=== PATIENT | female | born 1935 | race Caucasian/White ===

== ENCOUNTER 2016-11-06 06:42 | Inpatient (IN) | payer MEDICARE, OTHER ==
--- NOTE | 2016-08-08 12:54 | NUR ---
Teaching materials Scheduled for Lt TKA on 11-06-[address] Li. Handouts of medications to stop before surgery, letter from Dr Li, shower instructions, ortho consent, Surgical Services pamphlet, and my contact information. patient is scheduled to attend Joint Class, was instructed to obtain medical clearance 3-4 wks preop, and was set up with another apt with Dr Li and myself. Encouraged to call if she has any questions.
--- NOTE | 2016-10-09 14:00 | NUR ---
JOINT REPLACEMENT PREOP CLASS PATIENT ATTENDED JOINT REPLACEMENT PREOP CLASS. CASE MANAGEMENT CONTACT INFORMATION PROVIDED. EDUCATION WAS PROVIDED REGARDING WHAT TO EXPECT BEFORE, DURING AND AFTER SURGERY. INCLUDING: OVERVIEW OF ANATOMY AND PHYSIOLOGY HOSPITAL TREATMENT SCHEDULE THERAPY DEMONSTRATION CASE MANAGEMENT RESPONSIBILITIES DISCHARGE PLANNING EQUIPMENT NEEDS JOINT REPLACEMENT WORKBOOK ANTI-COAGULATION SURGERY STRONG NUTRITIONAL PROTOCOL DISCHARGE INSTRUCTIONS [facility] PATIENT PORTAL, WITH INSTRUCTIONS CJR AND PREOP SURVERY PREOP BATHING- CHG GIVEN ALL PATIENT'S QUESTIONS ANSWERED TO THEIR SATISFACTION. PATIENTS AND COACHES ENCOURAGED TO CALL WITH ANY ADDITIONAL QUESTIONS OR CONCERNS. CM FOLLOWING FOR TRANSITIONAL CARE PLANNING NEEDS DURING HOSPITALIZATION.
--- NOTE | 2016-10-15 09:25 | NUR ---
Face to face interaction with patient and her . PMH, allergies, meds reviewed and documented. Reviewed preop and DOS instructions as well as medications to stop before surgery. She would like to move her surgery up if there are any cancellations so she will stop her ASA and Glucosamine on 10-16-16.
--- NOTE | 2016-10-15 14:02 | NUR ---
Implantable Device Medtronic Sofy Parekh Pacemaker Serial # [id number] # [id number] Implanted on 10-14-15 Dr Emerson Parrish MD [phone] [id number]
--- NOTE | 2016-11-05 15:11 | NUR ---
HgbA1C Dr Li notified of A1C of 7.6. Ok to proceed with surgery.
[2016-11-06] VITALS (31 sets, daily range): BP systolic 100–160; BP diastolic 50–73; PULSE 69–94; RESP 12–18; TEMP 96.8–98; O2SAT 87–99; Ht 161.3 cm; Wt 88.0 kg
[~2016-11-06] VITALS: Ht 161.3 cm; Wt 88.0 kg
[~2016-11-06 06:42] MED LIST: ACET-2723 PO; AMLO5TAB2 PO; ASPI-914 PO; ATEN25TA PO; CALC-39 PO; CLINDAMYCIN 900mg IVPB 50 ML IV ONE; CYAN500T2 PO; FAMOTIDINE 20mg IVPB 50 ML IV ONE; FURO20TA4 PO; GABA-338 PO; GLUC1CAP10 PO; LIDOCAINE 1% (10mg/ml) 2ml SDV ID ONE; LISI-621 PO; LOVA10TA2 PO; MESA800T PO; METOCLOPRAMIDE 10mg/2ml INJECTION IV ONE; POTA10TA14 PO; PYRI100T2 PO; TRAM50TA4 PO
--- OUTSIDE RECORDS SUMMARY | 2016-11-06 06:45 | XMS REPORT ---
Author Author [facility]. Organization [facility] Address [address] [place] [address] Phone [phone] Summary purpose CCDA Sent to [facility] Chief Complaint and Reason for Visit No authorized Reason for Visit (Admitting Diagnosis) is available for this visit. Problem list No authorized problems tracked for continuity of care are available for this visit. Encounters No authorized problems tracked for encounter diagnoses are available for this visit. Medications No medications recorded for this patient visit Allergies, adverse reactions, alerts Allergen Category Ingredient Status Reaction Severity Onset Penicillins Drug Penicillins Active niacin Drug niacin Active Immunizations No immunizations recorded for this patient visit Relevant diagnostic tests and/or laboratory data No authorized results are available for this patient visit History of procedures Procedure Code Code Type Description Date Performed Performing Physician 59157 CPT-4 INJECT SPINE L/S (CD) 11-22-2015 JESSICA LLOYD J1040 CPT-4 METHLPREDNISOLONE ACETATE 11-22-2015 JESSICA LLOYD J1030 CPT-4 DEPO MEDROL 40MG 11-22-2015 JESSICA LLOYD Functional status No functional or cognitive status observations are available for this visit. Vital signs Type Value Date Respirations 16 71-30-004209:17 Pulse 70 81-22-567411:17 O2 Saturation 97% 34-86-838349:17 Systolic Blood Press 124mm/HG 55-88-632959:17 Diastolic Blood Pres 82mm/HG 87-95-032718:17 Social history No Social History or smoking status observations were recorded for this visit. ( Unknown if ever smoked.) Treatment Plan No treatment plan text is available for this visit. Hospital discharge instructions No discharge instruction text is available for this visit.
--- OUTSIDE RECORDS SUMMARY | 2016-11-06 06:45 | XMS REPORT ---
Author Author [facility]. Organization [facility] Address [address] [place] [address] Phone [phone] Summary purpose CCDA Sent to [facility] Chief Complaint and Reason for Visit Admit Diagnosis 1 SHORTNESS OF BREATH Problem list No authorized problems tracked for continuity of care are available for this visit. Encounters No authorized problems tracked for encounter diagnoses are available for this visit. Medications No home medications recorded for this patient visit Allergies, adverse reactions, alerts No allergy information is available for this patient. Immunizations No immunizations recorded for this patient visit Relevant diagnostic tests and/or laboratory data RESULTS CBC [id number]:15:00 Result Normal Range Units WBC 7.20 4.8-10.8 x103/mm3 Neutrophil % 52.9 50-70 % Lymph % 33.5 20-50 % [place] % 7.9 1.0-9.0 % Eosinophil % H 4.9 0-4 % Basophil % 0.8 0-2 % Neutrophil # 3.81 3.0-7.0 x103/mm3 Lymph # 2.41 1.0-4.0 x103/mm3 [place] # 0.57 0.0-0.8 x103/mm3 Eosinophil # 0.35 0-0.5 x103/mm3 Basophil # 0.06 0-0.2 x103/mm3 RBC 4.63 4.20-5.40 x103/mm3 HGB 12.7 12.0-16.0 g/dl HCT 38.5 37.0-47.0 % MCV 83.2 81-99 FL MCH 27.4 27.0-31.0 pg MCHC 33.0 32.0-36.0 g/dl RDW 15.0 12-15 % Platelet L 135 150-400 x103/mm3 MPV H 12.4 6.0-10.0 FL Chemistry Group [id number] Result Normal Range Units Sodium 140 134-145 mmol/L Potassium 3.8 3.6-5.0 mmol/L Chloride 101 98-107 mmol/L CO2 26 22-30 mmol/L Glucose H 201 75-110 mg/dl BUN H 25 9-20 mg/dl Creatinine .9 0.8-1.7 mg/dl Calcium 8.9 8.4-10.2 mg/dl Special Chemistry Group [id number]:00 Result Normal Range Units Troponin I < 0.06 ng/ml NEGATIVE - 0.06-0.30 ng/ml INCONCLUSIVE - 0.31-0.64 ng/ml; Suggest Repeating in 2-4 hours POSITIVE - >0.64 ng/ml; Probable AMI TSH 1.62 0.50-6.00 uIU/mL History of procedures Procedure Code Code Type Description Date Performed Performing Physician 65931 CPT-4 METABOLIC PANEL TOTAL CA 05-21-2014 JESSICA LLOYD 40435 CPT-4 ASSAY OF TROPONIN, QUANT 05-21-2014 JESSICA LLOYD 56244 CPT-4 ASSAY THYROID STIM HORMONE 05-21-2014 JESSICA LLOYD 14591 CPT-4 COMPLETE CBC, AUTOMATED 05-21-2014 JESSICA LLOYD Functional status No functional or cognitive status observations are available for this visit. Vital signs No authorized vital signs are available for this visit. Social history No Social History or smoking status observations were recorded for this visit. ( Unknown if ever smoked.) Treatment Plan No treatment plan text is available for this visit. Hospital discharge instructions No discharge instruction text is available for this visit.
--- OUTSIDE RECORDS SUMMARY | 2016-11-06 06:45 | XMS REPORT ---
Author Author [facility]. Organization [facility] Address [address] [place] [address] Phone [phone] Summary purpose CCDA Sent to [facility] Chief Complaint and Reason for [...] Relevant diagnostic tests and/or laboratory data RESULTS Chemistry Group [id number] Result Normal Range Units AST 21 14-36 U/L ALT 26 11-66 U/L History of procedures Procedure Code Code Type Description Date Performed Performing Physician 75411 CPT-4 ALANINE AMINO (ALT) (SGPT) 12-23-2015 JESSICA LLOYD 14558 CPT-4 TRANSFERASE (AST) (SGOT) 12-23-2015 JESSICA LLOYD Functional status No functional or [...]
--- OUTSIDE RECORDS SUMMARY | 2016-11-06 06:45 | XMS REPORT ---
Author Author [facility]. Organization [facility] Address [address] [place] [address] Phone [phone] Summary purpose CCDA Sent to [facility] Chief Complaint and Reason for [...] diagnostic tests and/or laboratory data RESULTS CBC :25:00 Result Normal Range Units WBC 7.97 4.8-10.8 x103/mm3 Neutrophil % L 43.5 50-70 % Lymph % 40.8 20-50 % [place] % H 9.8 1.0-9.0 % Eosinophil % H 5.1 0-4 % Basophil % 0.8 0-2 % Neutrophil # 3.47 3.0-7.0 x103/mm3 Lymph # 3.25 1.0-4.0 x103/mm3 [place] # 0.78 0.0-0.8 x103/mm3 Eosinophil # 0.41 0-0.5 x103/mm3 Basophil # 0.06 0-0.2 x103/mm3 RBC 4.27 4.20-5.40 x103/mm3 HGB 12.7 12.0-16.0 g/dl HCT 38.5 37.0-47.0 % MCV 90.2 81-99 FL MCH 29.7 27.0-31.0 pg MCHC 33.0 32.0-36.0 g/dl RDW 12.8 12-15 % Platelet 170 150-400 x103/mm3 MPV H 12.5 6.0-10.0 FL Chemistry Group [id number]:00 Result Normal Range Units Sodium 141 134-145 mmol/L Potassium 4.2 3.6-5.0 mmol/L Chloride 101 98-107 mmol/L CO2 H 33 22-30 mmol/L Glucose H 111 75-110 mg/dl BUN 19 9-20 mg/dl Creatinine L .76 0.8-1.7 mg/dl eGFR 73 ml/min. Calcium 9.4 8.4-10.2 mg/dl History of procedures Procedure Code Code Type Description Date Performed Performing Physician 37509 CPT-4 METABOLIC PANEL TOTAL CA 08-29-2016 JESSICA LLOYD 13044 CPT-4 COMPLETE CBC, AUTOMATED 08-29-2016 JESSICA LLOYD Functional status No functional or [...]
--- OUTSIDE RECORDS SUMMARY | 2016-11-06 06:45 | XMS REPORT ---
Author Author [facility]. Organization [facility] Address [address] [place] [address] Phone [phone] Summary purpose CCDA Sent to [facility] Chief Complaint and Reason for Visit No [...] for this patient visit History of procedures No procedures recorded for this patient visit. Functional status No functional or cognitive status [...]
--- OUTSIDE RECORDS SUMMARY | 2016-11-06 06:45 | XMS REPORT ---
Author Author [facility]. Organization [facility] Address [address] [place] [address] Phone [phone] Summary purpose CCDA Sent to [facility] Chief Complaint and Reason for Visit [...] tests and/or laboratory data RESULTS Chemistry Group [id number]:00 Result Normal Range Units AST H 44 14-36 U/L ALT 27 11-66 U/L History of procedures No procedures recorded for [...]
--- OUTSIDE RECORDS SUMMARY | 2016-11-06 06:45 | XMS REPORT ---
Author Author [facility]. Organization [facility] Address [address] [place] [address] Phone [phone] Summary purpose CCDA Sent to [facility] Chief Complaint and Reason for [...]
--- OUTSIDE RECORDS SUMMARY | 2016-11-06 06:45 | XMS REPORT ---
Author Author [facility]. Organization [facility] Address [address] [place] [address] Phone [phone] Summary purpose CCDA Sent to [facility] Chief Complaint and Reason [...] diagnostic tests and/or laboratory data RESULTS CBC [id number]:35:00 Result Normal Range Units WBC 8.89 4.8-10.8 x103/mm3 Neutrophil % L 47.0 50-70 % Lymph % 38.4 20-50 % [place] % H 10.3 1.0-9.0 % Eosinophil % 3.4 0-4 % Basophil % 0.9 0-2 % Neutrophil # 4.18 3.0-7.0 x103/mm3 Lymph # 3.41 1.0-4.0 x103/mm3 [place] # H 0.92 0.0-0.8 x103/mm3 Eosinophil # 0.30 0-0.5 x103/mm3 Basophil # 0.08 0-0.2 x103/mm3 RBC 4.60 4.20-5.40 x103/mm3 HGB 13.4 12.0-16.0 g/dl HCT 40.5 37.0-47.0 % MCV 88.0 81-99 FL MCH 29.1 27.0-31.0 pg MCHC 33.1 32.0-36.0 g/dl RDW 13.0 12-15 % Platelet 177 150-400 x103/mm3 MPV H 12.8 6.0-10.0 FL Chemistry Group [id number]:00 Result Normal Range Units Sodium 143 134-145 mmol/L Potassium 4.1 3.6-5.0 mmol/L Chloride 100 98-107 mmol/L CO2 29 22-30 mmol/L Glucose H 119 75-110 mg/dl BUN 19 9-20 mg/dl Creatinine L .73 0.8-1.7 mg/dl eGFR 77 ml/min. Total Protein 7.0 6.3-8.2 g/dl Albumin 4.2 3.5-5.0 g/dl Calcium 9.6 8.4-10.2 mg/dl Alk Phos 92 38-126 U/L AST 34 14-36 U/L ALT 34 11-66 U/L T Bili .6 0.2-1.3 mg/dl A/G Ratio 1.5 Ratio History of procedures No procedures recorded for [...]
--- OUTSIDE RECORDS SUMMARY | 2016-11-06 06:45 | XMS REPORT ---
Author Author [facility]. Organization [facility] Address [address] [place] [address] Phone [phone] Summary purpose CCDA Sent to [facility] Chief Complaint and Reason for Visit No [...] visit. Vital signs Type Value Date Respirations 18 24-16-002356:56 Pulse 69 :56 O2 Saturation 95% :56 Systolic Blood Press 204mm/HG :56 Diastolic Blood Pres 87mm/HG 30-83-075551:56 Social history No Social History or smoking status observations were recorded for this visit. ( Unknown if ever smoked.) Treatment Plan No treatment plan text is available for this visit. Hospital discharge instructions No discharge instruction text is available for this visit.
--- OUTSIDE RECORDS SUMMARY | 2016-11-06 06:45 | XMS REPORT ---
Author Author [facility]. Organization [facility] Address [address] [place] [address] Phone [phone] Summary purpose CCDA Sent to [facility] Chief Complaint and Reason for Visit No [...] Vital signs Type Value Date Respirations 16 85-71-630141:00 Pulse 70 :00 O2 Saturation 94% :00 Systolic Blood Press 118mm/HG 07-16-542463:05 Diastolic Blood Pres 62mm/HG 85-34-690609:05 Social history No Social History or smoking status observations were recorded for this visit. ( Unknown if ever smoked.) Treatment Plan No treatment plan text is available for this visit. Hospital discharge instructions No discharge instruction text is available for this visit.
--- OUTSIDE RECORDS SUMMARY | 2016-11-06 06:45 | XMS REPORT ---
Author Author [facility]. Organization [facility] Address [address] [place] [address] Phone [phone] Summary purpose CCDA Sent to [facility] Chief Complaint and Reason for Visit [...] diagnostic tests and/or laboratory data RESULTS CBC [id number]:15:00 Result Normal Range Units WBC 7.20 4.8-10.8 x103/mm3 Neutrophil % 52.9 50-70 % Lymph % 33.5 20-50 % [place] % 7.9 1.0-9.0 % Eosinophil % H 4.9 0-4 % Basophil % 0.8 0-2 % Neutrophil # 3.81 3.0-7.0 x103/mm3 Lymph # 2.41 1.0-4.0 x103/mm3 [place] # 0.57 0.0-0.8 x103/mm3 Eosinophil # 0.35 0-0.5 x103/mm3 Basophil # 0.06 0-0.2 x103/mm3 RBC 4.63 4.20-5.40 x103/mm3 HGB 12.7 12.0-16.0 g/dl HCT 38.5 37.0-47.0 % MCV 83.2 81-99 FL MCH 27.4 27.0-31.0 pg MCHC 33.0 32.0-36.0 g/dl RDW 15.0 12-15 % Platelet L 135 150-400 x103/mm3 MPV H 12.4 6.0-10.0 FL Chemistry Group [id number]:00 Result Normal Range Units Sodium 140 134-145 mmol/L Potassium 3.8 3.6-5.0 mmol/L Chloride 101 98-107 mmol/L CO2 26 22-30 mmol/L Glucose H 201 75-110 mg/dl BUN H 25 9-20 mg/dl Creatinine .9 0.8-1.7 mg/dl Calcium 8.9 8.4-10.2 mg/dl Special Chemistry Group [id number]:00 Result Normal Range Units Troponin I < 0.06 ng/ml NEGATIVE - 0.06-0.30 ng/ml INCONCLUSIVE - 0.31-0.64 ng/ml; Suggest Repeating in 2-4 hours POSITIVE - >0.64 ng/ml; Probable AMI TSH 1.62 0.50-6.00 uIU/mL History of procedures No procedures recorded for [...]
--- OUTSIDE RECORDS SUMMARY | 2016-11-06 06:46 | XMS REPORT ---
Author Author [facility]. Organization [facility] Address [address] [place] [address] Phone [phone] Summary purpose CCDA Sent to [facility] Chief Complaint and Reason for Visit [...] diagnostic tests and/or laboratory data RESULTS CBC :09:00 Result Normal Range Units WBC 7.77 4.8-10.8 x103/mm3 Neutrophil % L 49.5 50-70 % Lymph % 37.5 20-50 % [place] % 8.9 1.0-9.0 % Eosinophil % 3.7 0-4 % Basophil % 0.4 0-2 % Neutrophil # 3.85 3.0-7.0 x103/mm3 Lymph # 2.91 1.0-4.0 x103/mm3 [place]le[place] # 0.69 0.0-0.8 x103/mm3 Eosinophil # 0.29 0-0.5 x103/mm3 Basophil # 0.03 0-0.2 x103/mm3 RBC 4.35 4.20-5.40 x103/mm3 HGB 13.1 12.0-16.0 g/dl HCT 38.4 37.0-47.0 % MCV 88.3 81-99 FL MCH 30.1 27.0-31.0 pg MCHC 34.1 32.0-36.0 g/dl RDW 13.4 12-15 % Platelet 196 150-400 x103/mm3 MPV H 12.4 6.0-10.0 FL Chemistry Group [id number] Result Normal Range Units Sodium 145 134-145 mmol/L Potassium 4.0 3.6-5.0 mmol/L Chloride 105 98-107 mmol/L CO2 28 22-30 mmol/L Glucose H 122 75-110 mg/dl BUN 15 9-20 mg/dl Creatinine L .70 0.8-1.7 mg/dl Total Protein 6.7 6.3-8.2 g/dl Albumin 3.8 3.5-5.0 g/dl Calcium 9.3 8.4-10.2 mg/dl Alk Phos 83 38-126 U/L AST 24 14-36 U/L ALT 32 11-66 U/L T Bili .7 0.2-1.3 mg/dl A/G Ratio 1.3 Ratio Special Chemistry Group [id number] Result Normal Range Units TSH 1.56 0.50-6.00 uIU/mL History of procedures No procedures [...]
--- OUTSIDE RECORDS SUMMARY | 2016-11-06 06:46 | XMS REPORT ---
Author Author [facility]. Organization [facility] Address [address] [place] [address] Phone [phone] Summary purpose CCDA Sent to [facility] Chief Complaint and Reason for Visit [...] diagnostic tests and/or laboratory data RESULTS CBC [id number]:38:00 WBC 8.14 Neutrophil % 60.4 Lymph % 28.6 [place] % 7.5 Eosinophil % 2.9 Basophil % 0.6 Neutrophil # 4.91 Lymph # 2.33 [place] # 0.61 Eosinophil # 0.24 Basophil # 0.05 RBC 4.65 HGB 13.8 HCT 41.2 MCV 88.6 MCH 29.7 MCHC 33.5 RDW 13.9 Platelet 153 MPV H 13.2 Chemistry Group [id number] Sodium 139 Potassium 4.2 Chloride 101 CO2 27 Glucose H 196 BUN 17 Creatinine .8 Calcium 9.5 History of procedures Procedure Code Code Type Description Date Performed Performing Physician 23495 CPT-4 METABOLIC PANEL TOTAL CA 05-16-2015 JESSICA LLOYD 69093 CPT-4 COMPLETE CBC AUTOMATED 05-16-2015 JESSICA LLOYD Functional status No functional or [...]
--- OUTSIDE RECORDS SUMMARY | 2016-11-06 06:46 | XMS REPORT ---
Author Author [facility]. Organization [facility] Address [address] [place] [address] Phone [phone] Summary purpose CCDA Sent to [facility] Chief Complaint and Reason for Visit [...] tests and/or laboratory data RESULTS Chemistry Group [id number]:00 Result Normal Range Units Sodium 140 134-145 mmol/L Potassium 4.2 3.6-5.0 mmol/L Chloride 102 98-107 mmol/L CO2 27 22-30 mmol/L Glucose H 121 75-110 mg/dl BUN 19 9-20 mg/dl Creatinine L .6 0.8-1.7 mg/dl Calcium 9.4 8.4-10.2 mg/dl History of procedures Procedure Code Code Type Description Date Performed Performing Physician 37140 CPT-4 METABOLIC PANEL TOTAL CA 08-22-2015 JESSICA LLOYD Functional status No functional or [...]
--- OUTSIDE RECORDS SUMMARY | 2016-11-06 06:46 | XMS REPORT | Continuity of Care Document ---
Author Author [facility] Organization [facility] Address Unknown Phone Unavailable Support Name Relationship Address Phone MARIEL BOLAND MD Caregiver [address] [place], [place] [id number] JESSICA LLOYD MD Caregiver [facility] [address] [place] [address] NAYANA POWERS Next Of Kin [address] [place] [address] Insurance Providers Payer Name Policy Number Subscriber Name Relationship Medicare [id number] Naveen Powers 18 Self Other A Insurance [id number] Naveen Powers 18 Self Advance Directives Directive Response Recorded Date/Time Ordered Resuscitation Status Full Code 08/13/14 10:40am Resuscitation Documents on File No 08/13/14 9:43am Chief Complaint and Reason for Visit Chief Complaint RT TKA Reason for Visit Degenerative arthritis of right knee DMII (diabetes mellitus, type 2) GERD (gastroesophageal reflux disease) Hypertension Obesity (BMI 30-39.9) Restless leg syndrome Osteopenia Coronary artery disease Osteoarthritis CAD (coronary artery disease) Status post total right knee replacement Cardiomegaly Bradycardia following surgery Problems Medical Problems Problem Onset Date Status Degenerative arthritis of right knee Unknown Active DMII (diabetes mellitus, type 2) Unknown Active GERD (gastroesophageal reflux disease) Unknown Active Hypertension Unknown Active Obesity (BMI 30-39.9) Unknown Active Restless leg syndrome Unknown Active Osteopenia Unknown Active Coronary artery disease Unknown Active Osteoarthritis Unknown Active CAD (coronary artery disease) Unknown Active Status post total right knee replacement Unknown Active Cardiomegaly Unknown Active Bradycardia following surgery Unknown Active Medications Medication Dose Route Sig Days/Qty Instructions Order Date Discontinued Date Status Pyridoxine HCl 100 Mg PO DAILY 07/28/14 Active Sulindac 150 Mg PO DAILY 07/28/14 Active Simvastatin 20 Mg PO BEDTIME Take 1 tablet, by mouth, 1 time a day (at BEDTIME). 07/28/14 Active Potassium Chloride 10 Meq PO TWICE DAILY WITH MEALS 07/28/14 Active Metformin HCl 500 Mg PO DAILY 07/28/14 Active Lisinopril 1 Tab PO DAILY 07/28/14 Active Gluc Ferreira/Chondro Ferreira A/Vit C/Mn 1 Cap PO DAILY 07/28/14 Active Gabapentin 300 Mg PO BEDTIME 07/28/14 Active Furosemide 1 Tab PO DAILY 07/28/14 Active Atenolol 1 Tab PO DAILY 07/28/14 Active Aspirin 1 Tab PO DAILY 07/28/14 08/17/14 Discontinued Mesalamine 800 Mg PO TWICE A DAY 07/28/14 Active Calcium Carbonate/Vitamin D3 1 Tab PO TWICE A DAY 08/16/14 Active Acetaminophen 2 Tab PO TWICE A DAY 08/16/14 Active Ascorbic Acid 2 Tab PO TWICE A DAY 08/16/14 Active Aspirin 325 Mg PO TWICE A DAY 90 Qty 08/17/14 Active Multivits,Th W-Fe,Other Min 1 Tab PO DAILY 30 Days 08/17/14 Active Tramadol HCl 50-100 Mg PO Q4H PRN PAIN 50 Qty 08/17/14 Active Social History Social History Problem Response Recorded Date/Time Chewing Tobacco Status No 07/28/2014 11:14am Hx Substance Use No 07/28/2014 11:14am Hx Alcohol Use Y 1-2 XYR 07/28/2014 11:14am Has the pt used tobacco in the last 12 months No 07/28/2014 11:14am Tobacco Usage none 08/16/2014 1:35pm Query Response Start Date Stop Date Smoking Status Never smoker Hospital Discharge Instructions Instructions: Care Instructions: Reason for Hospitalization: RIGHT KNEE REPLACEMENT I was in the hospital because (patient own words): knee surgery Discharge Diet: ADA diet. Discharge Activity: ACTIVITY TOLERATED Follow Up Appointments: Omar Barnhart PA-C ON 09-01-14 AT 1030 AM Condition at time of discharge: Good Notify Physician If: 1. Call your surgeon if you are having problems relating to your hospitaliztion at [phone]. 2. Problems such as: Temp above 101.5 degrees 3.. If the office is closed, call [facility] at [phone] and have your Surgeon paged. Condition at time of discharge: Fair have your Surgeon paged. Condition at time of discharge: Fair Pass Plan of Care Discharge Date 08/17/14 2:10pm Disposition 01 DISCHARGED HOME, SELF-CARE Instructions/Education Provided [facility] Postop Instructions Prescriptions See Medications Section Functional Status Query Response Date Recorded Physical Hygiene Self August 17, 2014 1:33pm Disabilities Visual August 17, 2014 1:33pm Devices Used Glasses Walker August 17, 2014 1:33pm Dressing Self August 17, 2014 1:33pm Ambulation Self August 17, 2014 1:33pm Diet Self August 17, 2014 1:33pm Mental Status Alert Oriented August 17, 2014 1:33pm Disabilities Visual August 17, 2014 1:33pm Devices Used Glasses Walker August 17, 2014 1:33pm Physical Hygiene Self August 17, 2014 1:33pm Dressing Self August 17, 2014 1:33pm Ambulation Self August 17, 2014 1:33pm Diet Self August 17, 2014 1:33pm Allergies, Adverse Reactions, Alerts Allergen Type Severity Reaction Status Last Updated Penicillin Allergy Unknown HIVES Active 07/28/14 Niacin Allergy Unknown BLISTERS, ITCHING Active 07/28/14 Hydrocodone Adverse Reaction Unknown NAUSEA Active 08/13/14 Acetaminophen Adverse Reaction Unknown NAUSEA Active 08/13/14 Chlorpheniramine Adverse Reaction Unknown HTN PER H&P Active 08/09/14 Phenylpropanolamine Adverse Reaction Unknown HTN PER H&P Active 08/09/14 Immunizations Name Given Type Hx Influenza Vaccination Y May 2014 Historical Hx Pneumococcal Vaccination Y Unknown date Historical Hx Tetanus, Diptheria, Pertussis No Historical Hx Influenza Vaccination Y May 2014 Historical Hx Tetanus Diptheria No Historical Hx Tetanus, Diptheria, Pertussis No Historical Hx Tetanus Toxoid Vaccination Y unknown date Historical Vital Signs Acute Vital Signs Vital Response Date/Time Temperature (Fahrenheit) 99.9 deg F (96.8 - 99.1) Temperature (Calculated Celsius) 37.89291 degrees C (36.0 - 37.3) Temperature Source Temporal Pulse Rate (adult) 74 bpm (60 - 100) Respiratory Rate 20 breaths/min (10 - 20) O2 Sat by Pulse Oximetry 97 % (90 - 100) Oxygen Delivery Method Room Air Blood Pressure 141/68 mm Hg Blood Pressure Source Automatic Cuff Height (Feet) 5 feet Height (Inches) 5.00 inches Height 5 ft 5 in Weight 187 lb Body Mass Index 31.0 kg/m^2 Results Test Source Date Result Interp. Ref. Range Comments Anion Gap August 17, 2014 4:35am 8 MEQ/L N 5-15 BUN/Creatinine Ratio August 17, 2014 4:35am 18 RATIO N 6-26 Basophils # (Auto) August 17, 2014 4:35am 0.1 T/MM3 N 0-0.2 Basophils (%) (Auto) August 17, 2014 4:35am 0.4 % N 0-2 Blood Urea Nitrogen August 17, 2014 4:35am 14.0 MG/DL N 7-17 Calcium Level August 17, 2014 4:35am 8.6 MG/DL DN 8.4-10.2 Calculated Osmolality August 17, 2014 4:35am 262 MOSM/KG N 261-280 Carbon Dioxide Level August 17, 2014 4:35am 25 MEQ/L N 22-30 Chemistry Specimen Hemolysis August 17, 2014 4:35am < 15 0-25 0-25: No Hemolysis.26-70: Slight Hemolysis - can falsely elevate K and Urine Protein. 71-285: Moderate Hemolysis - can falsely elevate K, Troponin I, CA 19-9, PTH, CSF GLucose, and Urine Protein, and can falsely decrease Phenytoin. 286-999: Gross Hemolysis - can falsely elevate K, Troponin I, CA 19-9, PTH, CSF Glucose, and Urine Protine, and can falsely decrease Phenytoin. Recommend specimen recollection. Chloride Level August 17, 2014 4:35am 102 MEQ/L N 98-107 Creatinine August 17, 2014 4:35am 0.8 MG/DL DN 0.7-1.2 Eosinophils # (Auto) August 17, 2014 4:35am 0.2 T/MM3 N 0-0.5 Eosinophils (%) (Auto) August 17, 2014 4:35am 1.7 % N 0-4 Glomerular Filtration Rate Calc August 17, 2014 4:35am 70 - Glucometer August 17, 2014 10:21am 194 mg/dL H 65-110 Glucose Level August 17, 2014 4:35am 112 MG/DL H 65-110 Hematocrit August 17, 2014 4:35am 33.8 % L 36-46 Hemoglobin August 17, 2014 4:35am 10.9 GM/DL L 12-16 Hemoglobin A1c August 17, 2014 4:35am 7.0 % N 6-7 <6.0 NON-DIABETIC RANGE6.0-7.0 ADA THERAPEUTIC RANGE >7.0 ACTION SUGGESTED Icterus Index August 17, 2014 4:35am < 2 0-7 Immature Granulocyte # (Auto) August 17, 2014 4:35am 0.03 T/MM3 N 0.00- 0.03 Immature Granulocyte % (Auto) August 17, 2014 4:35am 0.3 % N 0.0-0.5 Lymphocytes # (Auto) August 17, 2014 4:35am 2.1 T/MM3 N 1-4.8 Lymphocytes (%) (Auto) August 17, 2014 4:35am 18.9 % L 23-45 Mean Corpuscular Hemoglobin August 17, 2014 4:35am 27.8 UUG N 26-34 Mean Corpuscular Hemoglobin Concent August 17, 2014 4:35am 32.2 GM/DL N 31-37 Mean Corpuscular Volume August 17, 2014 4:35am 86.2 UM3 N 80-100 Mean Platelet Volume August 17, 2014 4:35am 12.7 UM3 H 9.4-12.4 Monocytes # (Auto) August 17, 2014 4:35am 0.9 T/MM3 H 0-0.8 Monocytes (%) (Auto) August 17, 2014 4:35am 8.1 % N 0-9.0 Neutrophils # (Auto) August 17, 2014 4:35am 8.0 T/MM3 H 1.8-7.7 Neutrophils (%) (Auto) August 17, 2014 4:35am 70.6 % H 33-66 Platelet Count August 17, 2014 4:35am 147 T/MM3 N 130-400 Potassium Level August 17, 2014 4:35am 4.1 MEQ/L N 3.6-5 Prealbumin August 17, 2014 4:35am 25.7 MG/DL N 17.6-36.0 RDW Standard Deviation August 17, 2014 4:35am 46.9 FL N 36.9-50.2 Red Blood Count August 17, 2014 4:35am 3.92 M/MM3 L 4.00-5.20 Sodium Level August 17, 2014 4:35am 135 MEQ/L N 134-144 Thyroid Stimulating Hormone (TSH) August 17, 2014 4:35am 1.43 MIU/L N 0.47-4.68 Turbidity August 17, 2014 4:35am < 20 0-20 Vitamin B12 Level August 17, 2014 4:35am 467 PG/ML N 239-931 White Blood Count August 17, 2014 4:35am 11.3 T/MM3 H 4.5-11.0 Name: NAVEEN POWERS Unit #: [id number] : 1935 Sex: F Loc / Svc: MED DOS: Signed Report #: [id number] DIAGNOSTIC IMAGING REPORT TYPE OF EXAM: KNEE RIGHT 2 VIEW Dictated By: SUSIE MALHOTRA MD Indication: ITS.REASON: postop right total knee Comparison: None Findings: Postoperative changes of right total knee replacement are seen. There is expected postoperative subcutaneous gas. No evidence of hardware failure or acute fracture. No retained radiopaque surgical instruments or sponges. Impression: New right total knee prosthesis without evidence of immediate complication. . Procedures Procedure Status Date Provider(s) MRI JNT OF LWR EXTRE W/O DYE completed 06/21/14 Total knee arthroplasty completed 08/16/14 MARIEL BOLAND MD Encounters Encounter Location Date/Time Discharged Inpatient [facility] 08/16/14 5:28am Registered Clinic [facility] 08/15/14 3:41pm Registered Clinic [facility] 06/21/14 12:35pm Recent Diagnosis Degenerative arthritis of right knee DMII (diabetes mellitus, type 2) GERD (gastroesophageal reflux disease) Hypertension Obesity (BMI 30-39.9) Restless leg syndrome Osteopenia Coronary artery disease Osteoarthritis CAD (coronary artery disease) Status post total right knee replacement Cardiomegaly Bradycardia following surgery
--- OUTSIDE RECORDS SUMMARY | 2016-11-06 06:47 | XMS REPORT ---
Author Author [facility]. Organization [facility] Address [address] [place] [address] Phone [phone] Summary purpose CCDA Sent to [facility] Chief Complaint and Reason for Visit Admit Diagnosis 1 RESPIRATORY ABNORM NEC Problem list No authorized problems tracked for [...] Code Type Description Date Performed Performing Physician 34932 CPT-4 CARDIOVASCULAR STRESS TEST 05-26-2014 JESSICA LLOYD Functional status No functional or cognitive status observations are available for this visit. Vital signs Type Value Date Respirations 18 99-64-050292:56 Pulse 69 :56 O2 Saturation 95% :56 Systolic Blood Press 204mm/HG :56 Diastolic Blood Pres 87mm/HG 60-73-395406:56 Social history No Social History or smoking status observations were recorded for this visit. ( Unknown if ever smoked.) Treatment Plan No treatment plan text is available for this visit. Hospital discharge instructions No discharge instruction text is available for this visit.
--- OUTSIDE RECORDS SUMMARY | 2016-11-06 06:47 | XMS REPORT ---
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 Problem Pre-syncope R55 Active Problem Abnormal Holter exam R94.31 Active Problem Pacemaker Z95.0 Active Problem Bradycardia R00.1 Active Problem Dyspnea on exertion R06.09 Active Problem Dyslipidemia E78.5 Active Problem 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
--- OUTSIDE RECORDS SUMMARY | 2016-11-06 06:47 | XMS REPORT ---
Author Author [facility]. Organization [facility] Address [address] [place] [address] Phone [phone] Summary purpose CCDA Sent to [facility] Chief Complaint and Reason for [...] tests and/or laboratory data RESULTS Chemistry Group [id number]:00 Result Normal Range Units Sodium 138 134-145 mmol/L Potassium 4.4 3.6-5.0 mmol/L Chloride 100 98-107 mmol/L CO2 30 22-30 mmol/L Glucose H 258 75-110 mg/dl BUN H 32 9-20 mg/dl Creatinine .83 0.8-1.7 mg/dl eGFR 66 ml/min. Calcium 9.2 8.4-10.2 mg/dl AST 23 14-36 U/L ALT 33 11-66 U/L History of procedures Procedure Code Code Type Description Date Performed Performing Physician 04943 CPT-4 METABOLIC PANEL TOTAL CA 05-22-2016 JESSICA LLOYD 38800 CPT-4 ALANINE AMINO (ALT) (SGPT) 05-22-2016 JESSICA LLOYD 97182 CPT-4 TRANSFERASE (AST) (SGOT) 05-22-2016 JESSICA LLOYD Functional status No functional or [...]
--- OUTSIDE RECORDS SUMMARY | 2016-11-06 06:47 | XMS REPORT ---
Author Author [facility]. Organization [facility] Address [address] [place] [address] Phone [phone] Summary purpose CCDA Sent to [facility] Chief Complaint and Reason for Visit No [...] diagnostic tests and/or laboratory data RESULTS CBC :15:00 Result Normal Range Units WBC 9.38 4.8-10.8 x103/mm3 Neutrophil % 61.0 50-70 % Lymph % 25.4 20-50 % [place] % H 10.2 1.0-9.0 % Eosinophil % 3.0 0-4 % Basophil % 0.4 0-2 % Neutrophil # 5.72 3.0-7.0 x103/mm3 Lymph # 2.38 1.0-4.0 x103/mm3 [place] # H 0.96 0.0-0.8 x103/mm3 Eosinophil # 0.28 0-0.5 x103/mm3 Basophil # 0.04 0-0.2 x103/mm3 RBC 4.61 4.20-5.40 x103/mm3 HGB 13.0 12.0-16.0 g/dl HCT 39.6 37.0-47.0 % MCV 85.9 81-99 FL MCH 28.2 27.0-31.0 pg MCHC 32.8 32.0-36.0 g/dl RDW H 15.3 12-15 % Platelet 159 150-400 x103/mm3 MPV H 12.8 6.0-10.0 FL Chemistry Group :15:00 Result Normal Range Units Sodium 140 134-145 mmol/L Potassium 3.8 3.6-5.0 mmol/L Chloride 98 98-107 mmol/L CO2 28 22-30 mmol/L Glucose H 162 75-110 mg/dl BUN H 33 9-20 mg/dl Creatinine 1.1 0.8-1.7 mg/dl Total Protein 6.8 6.3-8.2 g/dl Albumin 4.1 3.5-5.0 g/dl Calcium 9.4 8.4-10.2 mg/dl Alk Phos 80 38-126 U/L AST 28 14-36 U/L ALT 30 11-66 U/L T Bili .6 0.2-1.3 mg/dl A/G Ratio 1.5 Ratio Coagulation Group :15:00 Result Normal Range Units Protime 11.0 9.8-12.4 Sec INR 1.0 APTT 23.2 21.9-31.9 Sec Hematology Group :15:00 Result Normal Range Units Sed Rate (ESR) 11 0-20 MM/hr. Reference Lab Group :50:00 Result Normal Range Units MRSA Source Nares History of procedures No procedures recorded for [...]
--- OUTSIDE RECORDS SUMMARY | 2016-11-06 06:47 | XMS REPORT ---
Author Author [facility]. Organization [facility] Address [address] [place] [address] Phone [phone] Summary purpose CCDA Sent to [facility] Chief Complaint and Reason for Visit Admit Diagnosis 1 DM2/NOS UNCOMP NSU Problem list No authorized problems tracked for [...] diagnostic tests and/or laboratory data RESULTS CBC 37-50-123172:47:00 Result Normal Range Units WBC 10.26 4.8-10.8 x103/mm3 Neutrophil % 50.8 50-70 % Lymph % 35.9 20-50 % [place] % H 9.3 1.0-9.0 % Eosinophil % 3.3 0-4 % Basophil % 0.7 0-2 % Neutrophil # 5.22 3.0-7.0 x103/mm3 Lymph # 3.68 1.0-4.0 x103/mm3 [place] # H 0.95 0.0-0.8 x103/mm3 Eosinophil # 0.34 0-0.5 x103/mm3 Basophil # 0.07 0-0.2 x103/mm3 RBC 4.53 4.20-5.40 x103/mm3 HGB 13.2 12.0-16.0 g/dl HCT 39.5 37.0-47.0 % MCV 87.2 81-99 FL MCH 29.1 27.0-31.0 pg MCHC 33.4 32.0-36.0 g/dl RDW 13.5 12-15 % Platelet 186 150-400 x103/mm3 MPV H 12.4 6.0-10.0 FL Chemistry Group [id number]:47:00 Result Normal Range Units Sodium 134 134-145 mmol/L Potassium 3.9 3.6-5.0 mmol/L Chloride 101 98-107 mmol/L CO2 27 22-30 mmol/L Glucose 106 75-110 mg/dl BUN 13 9-20 mg/dl Creatinine L .6 0.8-1.7 mg/dl Total Protein 6.4 6.3-8.2 g/dl Albumin 3.8 3.5-5.0 g/dl Calcium 9.3 8.4-10.2 mg/dl Alk Phos 95 38-126 U/L AST 18 14-36 U/L ALT 29 11-66 U/L T Bili .5 0.2-1.3 mg/dl A/G Ratio 1.4 Ratio Special Chemistry Group [id number]:00 Result Normal Range Units TSH 2.56 0.50-6.00 uIU/mL History of procedures Procedure Code Code Type Description Date Performed Performing Physician 15934 CPT-4 COMPREHEN METABOLIC PANEL 10-25-2014 JESSICA LLOYD 47114 CPT-4 ASSAY THYROID STIM HORMONE 10-25-2014 JESSICA LLOYD 10380 CPT-4 COMPLETE CBC AUTOMATED 10-25-2014 JESSICA LLOYD Functional status No functional or [...]
--- OUTSIDE RECORDS SUMMARY | 2016-11-06 06:47 | XMS REPORT ---
Author Author [facility]. Organization [facility] Address [address] [place] [address] Phone [phone] Summary purpose CCDA Sent to [facility] Chief Complaint and Reason for Visit Admit Diagnosis 1 HYPERTENSION NOS Problem list No authorized problems tracked for [...] tests and/or laboratory data RESULTS Chemistry Group [id number]:30:00 Result Normal Range Units Sodium 139 134-145 mmol/L Potassium 3.9 3.6-5.0 mmol/L Chloride 103 98-107 mmol/L CO2 26 22-30 mmol/L Glucose H 214 75-110 mg/dl BUN 17 9-20 mg/dl Creatinine .9 0.8-1.7 mg/dl Calcium 8.8 8.4-10.2 mg/dl History of procedures Procedure Code Code Type Description Date Performed Performing Physician 66545 CPT-4 METABOLIC PANEL TOTAL CA 05-04-2014 JESSICA LLOYD Functional status No functional or [...]
--- OUTSIDE RECORDS SUMMARY | 2016-11-06 06:47 | XMS REPORT ---
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 00061086 Problem Dyspnea on exertion R06.09 Active 77888279 Problem Fatigue R53.83 Active 25206749 Problem Pacemaker Z95.0 Active 761167677 Problem Pre-syncope R55 Active 776071801 Problem 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 Active 951701133 Problem Bradycardia R00.1 Active 41854849 Problem Abnormal Holter exam R94.31 Active 763788927 Problem Dyslipidemia E78.5 Active 534824233 Problem Dyspnea on exertion 786.09 Active 46341764 Problem Dyslipidemia (high LDL; low HDL) E78.4 Active 776450778 Problem Hypertension I10 Active 57357354 Problem Abnormal Cardiovascular Study 794.30 Active 905752489 Problem Type 2 diabetes mellitus without complications E11.9 Active 471588398 Problem Dyslipidemia 272.4 Active 695183251 Problem CAD (coronary artery disease) I25.10 Active 33334409 ALLERGIES Unknown Allergies SOCIAL HISTORY No smoking Hx information available PLAN OF CARE VITAL SIGNS MEDICATIONS Medication Instructions Dosage Frequency Start Date End Date Duration Status Lab Order Orders as directed Aug, Active RESULTS No Results PROCEDURES No Known procedures IMMUNIZATIONS No Known Immunizations
--- OUTSIDE RECORDS SUMMARY | 2016-11-06 06:47 | XMS REPORT ---
Author Author [facility]. Organization [facility] Address [address] [place] [address] Phone [phone] Summary purpose CCDA Sent to [facility] Chief Complaint and Reason for Visit [...] visit. Vital signs Type Value Date Respirations 20 48-97-153550:25 Pulse 75 :25 O2 Saturation 96% :25 Systolic Blood Press 145mm/HG 06-08-531396:25 Diastolic Blood Pres 72mm/HG 22-95-264602:25 Social history No Social History or smoking status observations were recorded for this visit. ( Unknown if ever smoked.) Treatment Plan No treatment plan text is available for this visit. Hospital discharge instructions No discharge instruction text is available for this visit.
--- OUTSIDE RECORDS SUMMARY | 2016-11-06 06:47 | XMS REPORT ---
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 Problem Pre-syncope R55 Active Assessment RBBB (right bundle branch block with left anterior fascicular block ) I45.2 Active Problem Abnormal Holter exam R94.31 Active Assessment Dyslipidemia (high LDL; low HDL) E78.4 Active Assessment Type 2 diabetes mellitus without complications E11.9 Active Problem Pacemaker Z95.0 Active Problem Bradycardia R00.1 Active Problem Dyspnea on exertion R06.09 Active Problem Dyslipidemia E78.5 Active Problem 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 Active Assessment Pacemaker Z95.0 Active Assessment CAD (coronary artery disease) I25.10 Active Assessment Dyspnea on exertion R06.09 Active Assessment Pre-syncope R55 Active Problem Dyslipidemia 272.4 Active Problem Dyslipidemia (high LDL; low HDL) E78.4 Active Problem Dyspnea on exertion 786.09 Active Problem Hypertension I10 Active Assessment 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 Active Problem Abnormal Cardiovascular Study 794.30 Active Problem Type 2 diabetes mellitus without complications E11.9 Active Medications Medication Code System Code Instructions Start Date End Date Status Dosage Atenolol [facility] [address]-74 25 MG Orally Once a day 1 tablet Lovastatin [facility] [address]-77 10 MG Orally Once a day 1 tablet with a meal Nitroglycerin [facility] [address]-97 0.4 MG Sublingual As needed October 15, 2014 1 tablet under the tongue Vitamin B12 [facility] 72546-65543 100 MCG Orally Once a day 1 tablet Lisinopril [facility] [address]-16 20 MG Orally bid 1 tab Aspirin [facility] [address]-58 81 MG Orally Once a day 1 tablet Asacol NDC 0 not defined Amlodipine Besylate [facility] [address]-88 5 MG Orally bid 1 tablet Calcium [facility] 73956-61534 Orally qd with Vitamin d3 600 mg 1 tab Gabapentin [facility] [address]-05 300 MG Orally 1 supper, 2 bedtime Glucosamine Chondroitin [facility] 14652-04431 Orally 1 tab qd not defined Vitamin B-6 [facility] [address]-87 100 MG Orally qd 1 tab Procedures Procedure Coding System Code Date Ofc Program PM Dual, Device Company CPT-4 19232 January 27, 2016 Office Visit, Est Pt., Level 3 CPT-4 71185 January 27, 2016 Vital Signs Date/Time: January 27, 2016 BMI 31.28 Index Weight 188 lbs Height 5 ft 5 in in Cardiac Monitoring Heart Rate 91 /min Oximetry 96%RA % Blood Pressure Diastolic 60 mm Hg Blood Pressure Systolic 138 mm Hg Results No Known Results Summary Purpose [employer]ClinicalWorks Submission
--- OUTSIDE RECORDS SUMMARY | 2016-11-06 06:47 | XMS REPORT ---
Author Author [facility]. Organization [facility] Address [address] [place] [address] Phone [phone] Summary purpose CCDA Sent to [facility] Chief Complaint and Reason for Visit No [...]
--- OUTSIDE RECORDS SUMMARY | 2016-11-06 06:47 | XMS REPORT | Continuity of Care Document ---
Author Author [facility] Organization [facility] Address Unknown Phone Unavailable Allergies Active Description Code Type Severity Reaction Onset Reported/Identified Relationship to Patient Clinical Status Yes NIACIN [id number] Drug Allergy N/A N/A Yes PENICILLAMINE 7975 Drug Allergy N/A N/A Yes Penicillins Penicillins Drug Allergy Mild HIVES 06/03/2014 Yes niacin 1052 Drug Allergy N/A N/A 09/15/2015 Confirmed or Verified Yes Penicillins 476 Drug Allergy N/A N/A 09/15/2015 Confirmed or Verified Yes niacin niacin Drug Allergy Severe HIVES 10/14/2015 Yes Penicillins Penicillins Drug Allergy Severe HIVES LRG WEEPING BLISTERS 10/14/2015 Medications Problems Date Dx Coded Attending Type Code Diagnosis Diagnosed By 04/21/2013 JESSICA LLOYD MD 401.9 HYPERTENSION NOS 10/20/2013 JESSICA LLOYD MD 250.00 DM2/NOS UNCOMP NSU 10/20/2013 JESSICA LLOYD MD 272.0 PURE HYPERCHOLESTEROLEM 10/20/2013 JESSICA LLOYD MD 401.1 BENIGN HYPERTENSION 05/04/2014 JESSICA LLOYD MD 401.9 HYPERTENSION NOS 05/21/2014 JESSICA LLOYD MD 786.05 SHORTNESS OF BREATH 05/26/2014 JESSICA LLOYD MD 401.9 HYPERTENSION NOS 05/26/2014 JESSICA LLOYD MD 786.09 RESPIRATORY ABNORM NEC 08/04/2014 MARIEL BOLAND MD 717.9 INT DERANGEMENT KNEE NOS 08/04/2014 MARIEL BOLAND MD 719.46 JOINT PAIN-L/LEG 08/06/2014 JESSICA LLOYD MD V72.83 OTHER SPECIF PRE-OP EXAM 10/25/2014 JESSICA LLOYD MD 250.00 DM2/NOS UNCOMP NSU 10/25/2014 JESSICA LLOYD MD 272.0 PURE HYPERCHOLESTEROLEM 10/25/2014 JESSICA LLOYD MD 401.9 HYPERTENSION NOS 05/16/2015 JESSICA LLOYD MD D50.9 Iron deficiency anemia, unspecified 05/16/2015 JESSICA LLOYD MD E11.9 Type 2 diabetes mellitus without complications 05/16/2015 JESSICA LLOYD MD I10. Essential (primary) hypertension 08/22/2015 JESSICA LLOYD MD I10 Essential (primary) hypertension 09/15/2015 JESSICA LLOYD MD M43.16 Spondylolisthesis, lumbar region 09/15/2015 JESSICA LLOYD MD M54.5 Low back pain 10/31/2015 JESSICA LLOYD MD D50.9 Iron deficiency anemia, unspecified 10/31/2015 JESSICA LLOYD MD E11.9 Type 2 diabetes mellitus without complications 10/31/2015 JESSICA LLOYD MD E78.0 Pure hypercholesterolemia 11/22/2015 JESSICA LLOYD MD M43.17 Spondylolisthesis, lumbosacral region 12/20/2015 JESSICA LLOYD MD M43.10 Spondylolisthesis, site unspecified 12/23/2015 JESSICA LLOYD MD E78.0 Pure hypercholesterolemia 02/08/2016 JESSICA LLOYD MD E78.0 Pure hypercholesterolemia 05/22/2016 JESSICA LLOYD MD E78.0 Pure hypercholesterolemia 05/22/2016 JESSICA LLOYD MD I10 Essential (primary) hypertension 08/29/2016 JESSICA LLOYD MD D50.9 Iron deficiency anemia, unspecified 08/29/2016 JESSICA LLOYD MD I10 Essential (primary) hypertension Procedures Code Description [place] [address] METABOLIC PANEL TOTAL CA JESSICA LLOYD MD 04/21/2013 88077 METABOLIC PANEL TOTAL CA JESSICA LLOYD MD 10/20/2013 14818 ASSAY THYROID STIM HORMONE JESSICA LLOYD MD 10/20/2013 92570 COMPLETE CBC, AUTOMATED JESSICA LLOYD MD 10/20/2013 08625 METABOLIC PANEL TOTAL CA GABRIELE LLOYD MDHRYN R 05/04/2014 29372 METABOLIC PANEL TOTAL CA JESSICA LLOYD MD 05/21/2014 94297 ASSAY THYROID STIM HORMONE JESSICA LLOYD MD 05/21/2014 16797 ASSAY OF TROPONIN, QUANT JESSICA LLOYD MD 05/21/2014 60333 COMPLETE CBC, AUTOMATED PREMA CUMMINS, JESSICA Sands 05/21/2014 31904 CARDIOVASCULAR STRESS TEST JESSICA LLOYD MD 05/26/2014 88.53 LT HEART ANGIOCARDIOGRAM Francois CUMMINS, Emerson Ferrer 06/03/2014 88.55 CORONAR ARTERIOGR-1 CATH Francois CUMMINS, Emerson Ferrer 06/03/2014 28749 PT EVALUATION KRYSTIAN CUMMINS, [facility] 07/08/2014 08071 ULTRASOUND THERAPY KRYSTIAN CUMMINS, [facility] 07/08/2014 31795 THERAPEUTIC EXERCISES KRYSTIAN CUMMINS, [facility] 07/08/2014 64038 ULTRASOUND THERAPY KRYSTIAN CUMMINS, [facility] 07/14/2014 59185 THERAPEUTIC EXERCISES KRYSTIAN CUMMINS, [facility] 07/14/2014 40479 ELECTRICAL STIMULATION KRYSTIAN CUMMINS, [facility] 07/20/2014 60958 ULTRASOUND THERAPY KRYSTIAN CUMMINS, [facility] 07/20/2014 69775 COMPREHEN METABOLIC PANEL JESSICA LLOYD MD 08/06/2014 69211 COMPLETE CBC, AUTOMATED JESSICA LLOYD MD 08/06/2014 00383 PROTHROMBIN TIME JESSICA LLOYD MD 08/06/2014 93215 RBC SED RATE, AUTOMATED JESSICA LLOYD MD 08/06/2014 18256 THROMBOPLASTIN TIME, PARTIAL JESSICA LLOYD MD 08/06/2014 43584 CULTURE SCREEN ONLY JESSICA LLOYD MD 08/06/2014 86119 COMPREHEN METABOLIC PANEL JESSICA LLOYD MD 10/25/2014 63688 ASSAY THYROID STIM HORMONE JESSICA LLOYD MD 10/25/2014 69758 COMPLETE CBC, AUTOMATED JESSICA LLOYD MD 10/25/2014 58194 METABOLIC PANEL TOTAL JESSICA MOODY MD 05/16/2015 07443 COMPLETE CBC, JESSICA AMARO MD 05/16/2015 50020 METABOLIC PANEL TOTAL JESSICA MOODY MD 08/22/2015 88869 INJECT SPINE L/S (CD) ESTER OSEI 09/15/2015 J1030 DEPO MEDROL 40MG JESSICA LLOYD MD 09/15/2015 J1040 METHLPREDNISOLONE JESSICA PATE MD 09/15/2015 03686 COMPREHEN METABOLIC PANEL JESSICA LLOYD MD 10/31/2015 09286 ASSAY THYROID STIM HORMONE JESSICA LLOYD MD 10/31/2015 01537 COMPLETE CBC, AUTOMATED JESSICA LLOYD MD 10/31/2015 19799 INJECT SPINE L/S (CD) JESSICA LLOYD MD 11/22/2015 J1030 DEPO MEDROL 40MG JESSICA LLOYD MD 11/22/2015 J1040 METHLPREDNISOLONE JESSICA PATE MD 11/22/2015 74669 INJECT SPINE L/S (CD) JESSICA LLOYD MD 12/20/2015 J1030 DEPO MEDROL 40MG JESSICA LLOYD MD 12/20/2015 J1040 METHLPREDNISOLONE JESSICA PATE MD 12/20/2015 J2795 ROPIVACAINE HCL INJECTION JESSICA LLOYD MD 12/20/2015 59734 TRANSFERASE (AST) (SGOT) JESSICA LLOYD MD 12/23/2015 29091 ALANINE AMINO (ALT) (SGPT) JESSICA LLOYD MD 12/23/2015 38391 TRANSFERASE (AST) (SGOT) JESSICA LLOYD MD 02/08/2016 72441 ALANINE AMINO (ALT) (SGPT) JESSICA LLOYD MD 02/08/2016 38868 METABOLIC PANEL TOTAL CA JESSICA LLOYD MD 05/22/2016 90968 TRANSFERASE (AST) (SGOT) JESSICA LLOYD MD 05/22/2016 06633 ALANINE AMINO (ALT) (SGPT) JESSICA LLOYD MD 05/22/2016 30674 METABOLIC PANEL TOTAL CA JESSICA LLOYD MD 08/29/2016 48688 COMPLETE CBC, AUTOMATED JESSICA LLOYD MD 08/29/2016 Results Test Result Range Basic Metabolic Panel - 04/21/13 14:40 Sodium 144 MMOLL 134-145 Potassium 3.9 MMOLL 3.6-5.0 Chloride 105 MMOLL 98-107 CO2 29 MMOLL 22-30 Glucose 157 MG/DL 75-110 BUN 15 MG/DL 9-20 Creatinine .9 MG/DL 0.8-1.7 Calcium 9.5 MG/DL 8.4-10.2 CBC - 10/20/13 07:37 Eos # 0.40 x10^3 0-0.5 Eos % 4.9 % 0-4 HCT 35.6 % 37.0-47.0 HGB 11.5 G/DL 12.0-16.0 Lymph # 2.99 x10^3 1.0-4.0 Lymph % 36.7 % 20-50 MCH 25.8 PG 27.0-31.0 MCHC 32.3 G/DL 32.0-36.0 MCV 80.0 FL 81-99 [place] # 0.71 x10^3 0.0-0.8 [place] % 8.7 % 1.0-9.0 MPV 12.6 FL 6.0-10.0 Platelet 199 x10^3 150-400 RBC 4.45 x10^3 4.20-5.40 RDW 15.1 % 12-15 WBC 8.15 x10^3 4.8-10.8 Baso # 0.06 x10^3 0-0.2 Baso % 0.7 % 0-2 Neut % 49.0 % 50-70 Neut # 3.99 x10^3 3.0-7.0 Basic Metabolic Panel - 10/20/13 07:37 Sodium 140 MMOLL 134-145 Potassium 3.9 MMOLL 3.6-5.0 Chloride 101 MMOLL 98-107 CO2 29 MMOLL 22-30 Glucose 117 MG/DL 75-110 BUN 17 MG/DL 9-20 Creatinine .7 MG/DL 0.8-1.7 Calcium 9.4 MG/DL 8.4-10.2 TSH - 10/20/13 07:37 TSH 2.99 UIUML 0.50-6.00 Basic Metabolic Panel - 05/04/14 09:30 Sodium 139 MMOLL 134-145 Potassium 3.9 MMOLL 3.6-5.0 Chloride 103 MMOLL 98-107 CO2 26 MMOLL 22-30 Glucose 214 MG/DL 75-110 BUN 17 MG/DL 9-20 Creatinine .9 MG/DL 0.8-1.7 Calcium 8.8 MG/DL 8.4-10.2 CBC - 05/21/14 10:15 Eos # 0.35 x10^3 0-0.5 Eos % 4.9 % 0-4 HCT 38.5 % 37.0-47.0 HGB 12.7 G/DL 12.0-16.0 Lymph # 2.41 x10^3 1.0-4.0 Lymph % 33.5 % 20-50 MCH 27.4 PG 27.0-31.0 MCHC 33.0 G/DL 32.0-36.0 MCV 83.2 FL 81-99 [place] # 0.57 x10^3 0.0-0.8 [place] % 7.9 % 1.0-9.0 MPV 12.4 FL 6.0-10.0 Platelet 135 x10^3 150-400 RBC 4.63 x10^3 4.20-5.40 RDW 15.0 % 12-15 WBC 7.20 x10^3 4.8-10.8 Baso # 0.06 x10^3 0-0.2 Baso % 0.8 % 0-2 Neut % 52.9 % 50-70 Neut # 3.81 x10^3 3.0-7.0 Basic Metabolic Panel - 05/21/14 10:15 Sodium 140 MMOLL 134-145 Potassium 3.8 MMOLL 3.6-5.0 Chloride 101 MMOLL 98-107 CO2 26 MMOLL 22-30 Glucose 201 MG/DL 75-110 BUN 25 MG/DL 9-20 Creatinine .9 MG/DL 0.8-1.7 Calcium 8.9 MG/DL 8.4-10.2 Troponin I - 05/21/14 10:15 Troponin I < 0.06 NG/ML TSH - 05/21/14 10:15 TSH 1.62 UIUML 0.50-6.00 CBC - 06/03/14 12:30 MEAN CELL HGB 26.7 pg 27.0-33.0 MEAN CELL HGB CONCENTRATION 32.3 g/dL 32.0-37.0 MEAN CELL VOLUME 82.8 fl 80.0-100.0 RED BLOOD CELL 5.28 m/cumm 4.00-6.00 RED CELL DISTRIBUTION WIDTH 15.4 % 11.0- 15.6 WHITE BLOOD CELL 9.3 k/cumm 5.0-10.0 HEMOGLOBIN 14.1 gm/dL 12.0-16.0 HEMATOCRIT 43.7 % 37.0-47.0 PLATELET COUNT 153 k/cumm 150-400 LIPID PANEL - 06/03/14 12:30 CHOLESTEROL/HDL RATIO 3.1 < 5.0 LDL CHOLESTEROL 114 mg/dL < 100 VLDL CHOLESTEROL 45 mg/dL < 30 TRIGLYCERIDES 226 mg/dL < 150 CHOLESTEROL 235 mg/dL < 200 HDL CHOLESTEROL 76 mg/dL > 39 HEPATIC FUNCTION PANEL - 06/03/14 12:30 BILI UNCONJUGATED 0.4 mg/dL 0.0-0.7 AST/SGOT 40 Units/L 10-37 ALT/SGPT 58 Units/L < 66 TOTAL PROTEIN 8.1 gm/dL 6.4-8.2 ALBUMIN 4.1 gm/dL 3.4-5.0 BILI TOTAL 0.5 mg/dL 0.0-1.0 ALKALINE PHOSPHATASE TOTAL 104 IU/L 45- 117 BILI CONJUGATED 0.1 mg/dL 0.0-0.3 Comprehensive Metabolic Panel - 08/06/14 13:52 Sodium 140 MMOLL 134-145 Potassium 3.8 MMOLL 3.6-5.0 Chloride 98 MMOLL 98-107 CO2 28 MMOLL 22-30 Glucose 162 MG/DL 75-110 BUN 33 MG/DL 9-20 Creatinine 1.1 MG/DL 0.8-1.7 Calcium 9.4 MG/DL 8.4-10.2 T Bili .6 MG/DL 0.2-1.3 T. Protein 6.8 G/DL 6.3-8.2 A/G Ratio 1.5 RATIO Albumin 4.1 G/DL 3.5-5.0 Alk Phos 80 U/L 38-126 ALT 30 U/L 11-66 AST 28 U/L 14-36 CBC - 08/06/14 14:38 Eos # 0.28 x10^3 0-0.5 Eos % 3.0 % 0-4 HCT 39.6 % 37.0-47.0 HGB 13.0 G/DL 12.0-16.0 Lymph # 2.38 x10^3 1.0-4.0 Lymph % 25.4 % 20-50 MCH 28.2 PG 27.0-31.0 MCHC 32.8 G/DL 32.0-36.0 MCV 85.9 FL 81-99 [place] # 0.96 x10^3 0.0-0.8 [place] % 10.2 % 1.0-9.0 MPV 12.8 FL 6.0-10.0 Platelet 159 x10^3 150-400 RBC 4.61 x10^3 4.20-5.40 RDW 15.3 % 12-15 WBC 9.38 x10^3 4.8-10.8 Baso # 0.04 x10^3 0-0.2 Baso % 0.4 % 0-2 Neut % 61.0 % 50-70 Neut # 5.72 x10^3 3.0-7.0 Sed Rate (ESR) - 08/06/14 14:39 Sed Rate (ESR) 11 MM/hr 0-20 Protime - 08/06/14 15:09 INR 1.0 Protime 11.0 SEC 9.8-12.4 APTT - 08/06/14 15:09 APTT 23.2 SEC 21.9-31.9 MRSA Culture Screen - 08/09/14 06:28 MRSA Source NARES MRSA Culture Screen Collected: 08/06/14 10:50 Comprehensive Metabolic Panel - 10/25/14 15:29 Sodium 134 MMOLL 134-145 Potassium 3.9 MMOLL 3.6-5.0 Chloride 101 MMOLL 98-107 CO2 27 MMOLL 22-30 Glucose 106 MG/DL 75-110 BUN 13 MG/DL 9-20 Creatinine .6 MG/DL 0.8-1.7 Calcium 9.3 MG/DL 8.4-10.2 T Bili .5 MG/DL 0.2-1.3 T. Protein 6.4 G/DL 6.3-8.2 A/G Ratio 1.4 RATIO Albumin 3.8 G/DL 3.5-5.0 Alk Phos 95 U/L 38-126 ALT 29 U/L 11-66 AST 18 U/L 14-36 TSH - 10/25/14 15:30 TSH 2.56 UIUML 0.50-6.00 CBC - 10/25/14 16:04 Eos # 0.34 x10^3 0-0.5 Eos % 3.3 % 0-4 HCT 39.5 % 37.0-47.0 HGB 13.2 G/DL 12.0-16.0 Lymph # 3.68 x10^3 1.0-4.0 Lymph % 35.9 % 20-50 MCH 29.1 PG 27.0-31.0 MCHC 33.4 G/DL 32.0-36.0 MCV 87.2 FL 81-99 [place] # 0.95 x10^3 0.0-0.8 [place] % 9.3 % 1.0-9.0 MPV 12.4 FL 6.0-10.0 Platelet 186 x10^3 150-400 RBC 4.53 x10^3 4.20-5.40 RDW 13.5 % 12-15 WBC 10.26 x10^3 4.8-10.8 Baso # 0.07 x10^3 0-0.2 Baso % 0.7 % 0-2 Neut % 50.8 % 50-70 Neut # 5.22 x10^3 3.0-7.0 Basic Metabolic Panel - 08/22/15 15:46 Sodium 140 MMOLL 134-145 Potassium 4.2 MMOLL 3.6-5.0 Chloride 102 MMOLL 98-107 CO2 27 MMOLL 22-30 Glucose 121 MG/DL 75-110 BUN 19 MG/DL 9-20 Creatinine .6 MG/DL 0.8-1.7 Calcium 9.4 MG/DL 8.4-10.2 CBC - 10/14/15 10:45 MEAN CELL HGB 30.2 pg 27.0-33.0 MEAN CELL HGB CONCENTRATION 35.0 g/dL 32.0-37.0 MEAN CELL VOLUME 86.3 fl 80.0-100.0 RED BLOOD CELL 4.73 m/cumm 4.00-6.00 RED CELL DISTRIBUTION WIDTH 13.7 % 11.0- 15.6 WHITE BLOOD CELL 8.3 k/cumm 5.0-10.0 HEMOGLOBIN 14.3 gm/dL 12.0-16.0 HEMATOCRIT 40.8 % 37.0-47.0 PLATELET COUNT 135 k/cumm 150-400 METABOLIC PANEL, COMPREHN - 10/14/15 10:45 POTASSIUM 3.6 mmol/L 3.5-5.3 EST GFR (MDRD) > 60 mL/min > 59 ANION GAP 11 mmol/L 5-15 EST CrCl (CG) 54 mL/min > 59 GLUCOSE 125 mg/dL 70-99 CALCIUM 8.9 mg/dL 8.5-10.1 BLOOD UREA NITROGEN 20 mg/dL 7-20 CREATININE 0.9 mg/dL 0.6-1.0 SODIUM 142 mmol/L 135-148 CHLORIDE 106 mmol/L 98-110 AST/SGOT 34 Units/L 10-37 ALT/SGPT 63 Units/L < 66 CARBON DIOXIDE 25 mmol/L 21-32 TOTAL PROTEIN 7.6 gm/dL 6.4-8.2 ALBUMIN 3.9 gm/dL 3.4-5.0 BILI TOTAL 0.8 mg/dL 0.0-1.0 ALKALINE PHOSPHATASE TOTAL 98 IU/L 45- 117 LIPID PANEL - 10/14/15 10:45 CHOLESTEROL/HDL RATIO 3.1 < 5.0 LDL CHOLESTEROL 143 mg/dL < 100 VLDL CHOLESTEROL 36 mg/dL < 30 TRIGLYCERIDES 178 mg/dL < 150 CHOLESTEROL 266 mg/dL < 200 HDL CHOLESTEROL 87 mg/dL > 39 CBC - 10/31/15 11:58 Eos # 0.29 x10^3 0-0.5 Eos % 3.7 % 0-4 HCT 38.4 % 37.0-47.0 HGB 13.1 G/DL 12.0-16.0 Lymph # 2.91 x10^3 1.0-4.0 Lymph % 37.5 % 20-50 MCH 30.1 PG 27.0-31.0 MCHC 34.1 G/DL 32.0-36.0 MCV 88.3 FL 81-99 [place] # 0.69 x10^3 0.0-0.8 [place] % 8.9 % 1.0-9.0 MPV 12.4 FL 6.0-10.0 Platelet 196 x10^3 150-400 RBC 4.35 x10^3 4.20-5.40 RDW 13.4 % 12-15 WBC 7.77 x10^3 4.8-10.8 Baso # 0.03 x10^3 0-0.2 Baso % 0.4 % 0-2 Neut % 49.5 % 50-70 Neut # 3.85 x10^3 3.0-7.0 TSH - 10/31/15 13:24 TSH 1.56 UIUML 0.50-6.00 Comprehensive Metabolic Panel - 10/31/15 14:51 Sodium 145 MMOLL 134-145 Potassium 4.0 MMOLL 3.6-5.0 Chloride 105 MMOLL 98-107 CO2 28 MMOLL 22-30 Glucose 122 MG/DL 75-110 BUN 15 MG/DL 9-20 Creatinine .70 MG/DL 0.8-1.7 Calcium 9.3 MG/DL 8.4-10.2 T Bili .7 MG/DL 0.2-1.3 T. Protein 6.7 G/DL 6.3-8.2 A/G Ratio 1.3 RATIO Albumin 3.8 G/DL 3.5-5.0 Alk Phos 83 U/L 38-126 ALT 32 U/L AST 24 U/L ALT - 12/23/15 12:23 ALT 26 U/L AST - 12/23/15 12:23 AST 21 U/L AST - 02/08/16 14:22 AST 44 U/L ALT - 02/08/16 14:22 ALT 27 U/L Basic Metabolic Panel - 05/23/16 09:10 Sodium 138 MMOLL 134-145 Potassium 4.4 MMOLL 3.6-5.0 Chloride 100 MMOLL 98-107 CO2 30 MMOLL 22-30 Glucose 258 MG/DL 75-110 BUN 32 MG/DL 9-20 Creatinine .83 MG/DL 0.8-1.7 Calcium 9.2 MG/DL 8.4-10.2 EGFR 66 MLMIN ALT - 05/23/16 09:10 ALT 33 U/L AST - 05/23/16 09:10 AST 23 U/L Basic Metabolic Panel - 08/29/16 14:10 Sodium 141 MMOLL 134-145 Potassium 4.2 MMOLL 3.6-5.0 Chloride 101 MMOLL 98-107 CO2 33 MMOLL 22-30 Glucose 111 MG/DL 75-110 BUN 19 MG/DL 9-20 Creatinine .76 MG/DL 0.8-1.7 Calcium 9.4 MG/DL 8.4-10.2 EGFR 73 MLMIN CBC - 08/29/16 14:14 Eos # 0.41 x10^3 0-0.5 Eos % 5.1 % 0-4 HCT 38.5 % 37.0-47.0 HGB 12.7 G/DL 12.0-16.0 Lymph # 3.25 x10^3 1.0-4.0 Lymph % 40.8 % 20-50 MCH 29.7 PG 27.0-31.0 MCHC 33.0 G/DL 32.0-36.0 MCV 90.2 FL 81-99 [place] # 0.78 x10^3 0.0-0.8 [place] % 9.8 % 1.0-9.0 MPV 12.5 FL 6.0-10.0 Platelet 170 x10^3 150-400 RBC 4.27 x10^3 4.20-5.40 RDW 12.8 % 12-15 WBC 7.97 x10^3 4.8-10.8 Baso # 0.06 x10^3 0-0.2 Baso % 0.8 % 0-2 Neut % 43.5 % 50-70 Neut # 3.47 x10^3 3.0-7.0 CBC - 10/18/16 13:26 Eos # 0.30 x10^3 0-0.5 Eos % 3.4 % 0-4 HCT 40.5 % 37.0-47.0 HGB 13.4 G/DL 12.0-16.0 Lymph # 3.41 x10^3 1.0-4.0 Lymph % 38.4 % 20-50 MCH 29.1 PG 27.0-31.0 MCHC 33.1 G/DL 32.0-36.0 MCV 88.0 FL 81-99 [place] # 0.92 x10^3 0.0-0.8 [place] % 10.3 % 1.0-9.0 MPV 12.8 FL 6.0-10.0 Platelet 177 x10^3 150-400 RBC 4.60 x10^3 4.20-5.40 RDW 13.0 % 12-15 WBC 8.89 x10^3 4.8-10.8 Baso # 0.08 x10^3 0-0.2 Baso % 0.9 % 0-2 Neut % 47.0 % 50-70 Neut # 4.18 x10^3 3.0-7.0 Comprehensive Metabolic Panel - 10/18/16 13:46 Sodium 143 MMOLL 134-145 Potassium 4.1 MMOLL 3.6-5.0 Chloride 100 MMOLL 98-107 CO2 29 MMOLL 22-30 Glucose 119 MG/DL 75-110 BUN 19 MG/DL 9-20 Creatinine .73 MG/DL 0.8-1.7 Calcium 9.6 MG/DL 8.4-10.2 T Bili .6 MG/DL 0.2-1.3 T. Protein 7.0 G/DL 6.3-8.2 A/G Ratio 1.5 RATIO Albumin 4.2 G/DL 3.5-5.0 Alk Phos 92 U/L 38-126 ALT 34 U/L 11-66 AST 34 U/L 14-36 EGFR 77 MLMIN Encounters ACCT No. Visit Date/Time Discharge Status Pt. Type Provider Facility Loc./Unit Complaint [id number] 10/14/2015 09:30:00 2015 14:25:00 DIS Outpatient Francois CUMMINS, [facility] [id number] 06/03/2014 12:05:00 2013 21:29:00 DIS Outpatient Francois CUMMINS, [facility]
--- OUTSIDE RECORDS SUMMARY | 2016-11-06 06:47 | XMS REPORT ---
Author Author [facility]. Organization [facility] Address [address] [place] [address] Phone [phone] Summary purpose CCDA Sent to [facility] Chief Complaint and Reason for Visit Admit Diagnosis 1 JOINT PAIN-L/LEG Problem list No authorized problems tracked for [...] Code Type Description Date Performed Performing Physician 25532 CPT-4 PT EVALUATION 07-08-2014 MARIEL BOLAND 65776 CPT-4 ULTRASOUND THERAPY 07-08-2014 MARIEL BOLAND 46276 CPT-4 THERAPEUTIC EXERCISES 07-08-2014 MARIEL BOLAND 61879 CPT-4 ULTRASOUND THERAPY 07-14-2014 MARIEL BOLAND 12333 CPT-4 THERAPEUTIC EXERCISES 07-14-2014 MARIEL BOLAND 65162 CPT-4 ELECTRICAL STIMULATION 07-20-2014 MARIEL BOLAND 86351 CPT-4 ULTRASOUND THERAPY 07-20-2014 MARIEL BOLAND Functional status No functional or cognitive status [...]
--- OUTSIDE RECORDS SUMMARY | 2016-11-06 06:47 | XMS REPORT ---
Author Author [facility]. Organization [facility] Address [address] [place] [address] Phone [phone] Summary purpose CCDA Sent to [facility] Chief Complaint and Reason for Visit Admit Diagnosis 1 OTHER SPECIF PRE-OP EXAM Problem list No authorized problems tracked for [...] 50-70 % Lymph % 25.4 20-50 % [place] % H 10.2 1.0-9.0 % Eosinophil % 3.0 0-4 % Basophil % 0.4 0-2 % Neutrophil # 5.72 3.0-7.0 x103/mm3 Lymph # 2.38 1.0-4.0 x103/mm3 [place] # H 0.96 0.0-0.8 x103/mm3 Eosinophil # 0.28 0-0.5 x103/mm3 Basophil # 0.04 0-0.2 x103/mm3 RBC 4.61 4.20-5.40 x103/mm3 HGB 13.0 12.0-16.0 g/dl HCT 39.6 37.0-47.0 % MCV 85.9 81-99 FL MCH 28.2 27.0-31.0 pg MCHC 32.8 32.0-36.0 g/dl RDW H 15.3 12-15 % Platelet 159 150-400 x103/mm3 MPV H 12.8 6.0-10.0 FL Chemistry Group [id number]:15:00 Result Normal Range Units Sodium 140 134-145 [...] mg/dl A/G Ratio 1.5 Ratio Coagulation Group [id number]:00 Result Normal Range Units Protime 11.0 9.8-12.4 Sec INR 1.0 APTT 23.2 21.9-31.9 Sec Hematology Group [id number]:15:00 Result Normal Range Units Sed Rate (ESR) 11 0-20 MM/hr. Reference Lab Group [id number]:00 Result Normal Range Units MRSA Source Nares Result Amended on 2014-08-09 at 06:30:34. Previous status was [place]. MRSA Screen Source: Nares Collected: 08/06/14 10:50 .Site: Received : 08/06/14 20:19 .Order#: [id number] MRSA Screen by Culture FINAL 08/08/14 13:11 .No Methicillin Resistant Staphylococcus aureus isolated. MARTÍNEZ FOR RESULTS: * - NEW RESULT - RESULT WAS MODIFIED AFTER FINAL STATUS SET MRSA Screen by Culture performed at [facility] Reference Lab, [address] [place] [address] [employer] Genna Sands MD History of procedures Procedure Code Code Type Description Date Performed Performing Physician 67661 CPT-4 CULTURE SCREEN ONLY 08-06-2014 JESSICA LLOYD 96454 CPT-4 COMPLETE CBC AUTOMATED 08-06-2014 JESSICA LLOYD 65592 CPT-4 COMPREHEN METABOLIC PANEL 08-06-2014 JESSICA LLOYD 80118 CPT-4 PROTHROMBIN TIME 08-06-2014 JESSICA LLOYD 31651 CPT-4 THROMBOPLASTIN TIME PARTIAL 08-06-2014 JESSICA LLOYD 99548 CPT-4 RBC SED RATE AUTOMATED 08-06-2014 JESSICA LLOYD Functional status No functional or [...]
[2016-11-06] MEDS ORDERED: ONDANSETRON 4mg/2ml INJECTION IV ONE (07:00)
[2016-11-06] MEDS ORDERED: LR 1,000 ML IV PRN (07:00)
[2016-11-06] MEDS ORDERED: ACETAMINOPHEN 500 MG TABLET PO ONE (07:00)
[2016-11-06] MEDS ORDERED: NOZIN NASAL SWAB NS ONE ×2 (07:00→11:00)
[2016-11-06] MEDS ORDERED: VANCOMYCIN 1 GRAM INJECTION ONE (07:02)
[2016-11-06 07:06] LABS: BASOPHILS # (AUTO) 0.1 T/MM3 (0-0.2); BASOPHILS % (AUTO) 0.6 % (0-2); EOSINOPHILS # (AUTO) 0.3 T/MM3 (0-0.5); EOSINOPHILS % (AUTO) 3.5 % (0-4); HCT - HEMATOCRIT 39.5 % (36-46); HGB - HEMOGLOBIN 12.9 GM/DL (12-16); IMMATURE GRANULOCYTE # (AUTO) 0.01 T/MM3 (0.00-0.03); IMMATURE GRANULOCYTE % (AUTO) 0.1 % (0.0-0.5); LYMPHOCYTES # (AUTO) 3.4 T/MM3 (1-4.8); MEAN CORPUSCULAR HGB CONC(MCHC 32.7 GM/DL (31-37); MEAN CORPUSCULAR VOLUME 88.8 UM3 (80-100); MEAN PLATELET VOLUME 12.2 UM3 (9.4-12.4); MONOCYTES # (AUTO) 0.9 T/MM3 (0-0.8); MONOCYTES % (AUTO) 9.1 % (0-9.0); NEUTROPHILS #(AUTO)-ABSOLUTE 4.9 T/MM3 (1.8-7.7); NEUTROPHILS % (AUTO) 50.7 % (33-66); RED BLOOD COUNT 4.45 M/MM3 (4.00-5.20); WBC - WHITE BLOOD COUNT 9.6 T/MM3 (4.5-11.0)
[2016-11-06 07:26] LABS: ANION GAP 15 MEQ/L (5-15); BUN/CREATININE RATIO 33 RATIO (6-26); CALCIUM 9.6 MG/DL (8.4-10.2); CHLORIDE 103 MEQ/L (98-107); CO2 - CARBON DIOXIDE 29 MEQ/L (22-30); CREATININE 0.8 MG/DL (0.7-1.2); GLOMERULAR FILTRATION RATE 69; GLUCOSE 124 MG/DL (65-110); POTASSIUM 3.7 MEQ/L (3.6-5); SODIUM 147 MEQ/L (134-144)
--- NOTE | 2016-11-06 07:27 | ANESPREOP ---
Anesthesia Record Date and Time DATE: 11/06/16 TIME: 07:24 Pre-Op Diagnosis Left knee arthritis Proposed Surgical Procedure LT TKA NPO since: Midnight Allergies: Coded Allergies: Penicillins (Verified Allergy, Unknown, HIVES, 11/06/16) niacin (Verified Allergy, Unknown, BLISTERS, ITCHING, 11/06/16) chlorpheniramine (Verified Adverse Reaction, Unknown, HTN PER H&P, 11/06/16) hydrocodone (Verified Adverse Reaction, Unknown, NAUSEA, 11/06/16) phenylpropanolamine (Verified Adverse Reaction, Unknown, HTN PER H&P, ) rosuvastatin (Verified Adverse Reaction, Unknown, MYALGIAS, 11/06/16) PER H&P DATED 10-18-16 simvastatin (Verified Adverse Reaction, Unknown, MYALGIAS, 11/06/16) PER H&P DATED 10-18-16 Ht/Wt/BMI Height: 5 ' 3.50 " Weight: 83.800 kg BMI: 32.2 kg/m2 Vital Signs Date Time Temp Pulse Resp B/P Pulse Ox O2 Delivery O2 Flow Rate FiO2 11/06/16 06:59 97.8 88 16 160/73 95 Room Air Medications Inpatient Medications Current Medications Medications (Trade) Dose Ordered Sig/Willis Start Time Stop Time Status Last Admin Dose Admin Lactated Ringer's (Lactated Ringers) 1,000 ml @ 50 mls/hr Q20H PRN 11/06/16 07:00 Acetaminophen (Tylenol Extra Strength) 500 Mg Tablet, 2 TAB PO BID, (Reported) Last Taken: on 11/06/16529 Amlodipine Besylate (Amlodipine Besylate) 5 Mg Tablet, 5 MG PO DAILY, (Reported) Last Taken: on 11/06/16 05 Aspirin *EC* (Low Dose Aspirin EC) 81 Mg Tablet.dr, 1 TAB PO DAILY, (Reported) Last Taken: on Unknown Date & Time Atenolol (Atenolol) 25 Mg Tablet, 1 TAB PO DAILY, (Reported) Last Taken: on 11/06/16 0530 Calcium Carbonate/Vitamin D3 (Calcium 600 + Vit D Tablet) 1 Each Tablet, 1 TAB PO BID, (Reported) Last Taken: on 11/05/16 1900 Cyanocobalamin (Vitamin B-12) (Vitamin B-12) 500 Mcg Tablet, 1 TAB PO DAILY, (Reported) Last Taken: on 11/05/16 0800 Furosemide (Furosemide) 20 Mg Tablet, 1 TAB PO DAILY, (Reported) Last Taken: on 11/05/16 0800 Gabapentin (Gabapentin) 300 Mg Capsule, 1 CAP PO WS, (Reported) MAY REPEAT X1 DURING THE NIGHT PRN Last Taken: on 11/05/16 1800 Gabapentin (Gabapentin) 300 Mg Capsule, 3 CAP PO HS, (Reported) Last Taken: on 11/05/162129 Gabapentin (Gabapentin) 300 Mg Capsule, 1 CAP PO PRN, (Reported) Last Taken: on 11/04/16 0200 Gluc Ferreira/Chondro Ferreira A/Vit C/Mn (Glucosamine 1, 500 Complex Cp) 1 Each Capsule, 1 CAP PO DAILY, (Reported) Last Taken: on Unknown Date & Time Lisinopril (Lisinopril) 20 Mg Tablet, 1 TAB PO BID, (Reported) Last Taken: on 11/05/16 1800 Lovastatin (Lovastatin) 10 Mg Tablet, 1 TAB PO HS, (Reported) Last Taken: on 11/05/162129 Mesalamine (Asacol Hd) 800 Mg Tablet, 800 MG PO BID, (Reported) Last Taken: on 11/05/16 08 Potassium Chloride (Potassium Chloride) 10 Meq Tablet.er, 10 MEQ PO DAILY, (Reported) Last Taken: on 11/05/16 0800 Pyridoxine HCl (Vitamin B-6) 100 Mg Tablet, 1 TAB PO DAILY, (Reported) Last Taken: on 11/05/16 0800 Tramadol HCl (Tramadol HCl) 50 Mg Tablet, 50 MG PO Q4H PRN for PAIN, (Reported) Take 1 tablet, by mouth, every 4 hours. Last Taken: on 11/06/16 0500 Currently on Beta Tobi: Yes Beta Tobi Last Taken: Atenolol @0530 11/06/16 Medical/Surgical History Anesthesia PMH: Reports: *Diabetes (DIET CONTROLLED), *Dyspnea, *Hypertension, Arthritis (IN ANKLE AND RT KNEE), Hyperlipidemia, Pneumonia (WALKING PNEUMONIA IN THE PAST), Reflux (PER H&P), Denies: *Angina, *HI, Anesthesia Reactions, Asthma, Blood Transfusion Reac, CHF, COPD, CVA/Stroke/TIA, Cancer (SKIN CANCER- SURGICAL), Clotting Problems, Deep Vein Thrombosis, Glaucoma, Hepatitis, Hiatal Hernia, Malignant Hyperthermia, Renal Disease, Seizures, Sleep Apnea, Thyroid Disease, Tuberculosis Smoking Status: Former smoker Has pt. smoked today?: No Use Chewing Tobacco?: No Second Hand Exposure: No Substance Use Type: does not use Alcohol Intake: none Past Surgical History Orthopedic Surgeries: Yes - RT TKA Abdominal Surgeries: Yes - LAP ANDREA, APPY Genitourinary Surgeries: Cardiac Surgeries: Yes - HEART CATH, PACEMAKER Endocrine Surgeries: Reproductive Surgeries: Yes - TUBAL LIGATION 1971 Neurological Surgeries: Ear Surgeries: Nose Surgeries: Throat Surgeries: Yes - TONSILLECTOMY 1948 Other Surgeries: Yes - NATASHA CATARACT WITH IOL IMP 2007;COLONOSCOPY X2 Anesthesia Adverse Reactions: FOUND none Family Hx of Anesthesia Advers: none Hx of Motion Sickness: No Pertinent Findings Laboratory Tests 11/06/16 07:01 EKG Rhythm: Sinus Rhythm Physical Exam Respiratory: Lungs clear Cardiovascular: FOUND Regular rate, rhythm Airway Assessment Mallampati Score: II TMD: 3 Fingerbreadths Neck Extension: Fair Overall Assessment: No Airway Concerns ASA: 3 Plan Regional: Spinal Discussion Discussed risks/options/alternatives of anesthesia and questions answered. Patient consents. Nursing pain assessment noted. Present: Family Member Attestation Statement Prior to the delivery of any anesthetic medication, I examined the patient, developed the plan, obtained the patient's consent and discussed the risk and benefits of the procedure with the patient/guardian. MARINE VITALE CIGARETTE PAPER TESTER Nov 06, 2016 07:27
[2016-11-06] MEDS ORDERED: GABA-338 PO (07:43)
[2016-11-06] MEDS ORDERED: MIDAZOLAM 2mg/2ml INJECTION ONE (08:42)
[2016-11-06] MEDS ORDERED: PROPOFOL 500mg 50 ML IV ONE ×2 (08:42→09:42)
[2016-11-06] MEDS ORDERED: TRANEXAMIC ACID 1,000 MG in NORMAL SALINE 100 ML IV ONE ×2 (09:00→10:00)
[2016-11-06] MEDS ORDERED: EPHEDRINE SULFATE 50mg/ml INJECTION ONE (09:40)
[2016-11-06] MEDS ORDERED: ROPIVACAINE 0.5% (5mg/ml) 30ml INJ ONE (09:54)
[2016-11-06] MEDS ORDERED: EPINEPHRINE 0.25 MG, BUPIVACAINE 0.25% 75 MG, MORPHINE SULFATE 15 MG, KETOROLAC 60 MG i... INJ ONE ×5 (10:00)
--- NOTE | 2016-11-06 10:42 | PDOPERATE ---
Operative Report Date of Operation 11/06/16 Side: Left Preoperative Diagnosis: knee primary DJD Postoperative Diagnosis Same as preoperative diagnosis. Operation/Procedure: total knee arthroplasty (left) Surgeon Marcella Li MD Engine Testing Supervisor ELPIDIO Bowden Complications None. Regional Block: Spinal Estimated Blood Loss See Anesthesia Record. Fluids Please See Anesthesia Record. Description of Operation Ms. Powers and her left knee were identified and marked in the the preoperative holding area. She was then brought back to the operating suite and proper anesthesia was administered. She was then positioned supine on the operating table. The left lower extremity was then prepped and draped in my normal sterile fashion. Timeout was performed with all operating room personnel. The leg was exsanguinated and tourniquet inflated 250 mmHg. A standard anterior incision followed by a medial parapatellar approach was utilized. The vast majority of her damage was on the medial compartment. A distal femoral cut was made in 5 of valgus using intramedullary guide. The femur was sized at a 4 and rotation set using the epicondylar axis. Distal femoral cuts were performed. A proximal tibial cut was made using extramedullary guide. Remaining osteophytes and meniscus were removed. Gaps were checked and they were well balanced and rectangular. The tourniquet was then let down. Trial components were placed with a 9 mm spacer. This allowed for full range of motion and the patella tracked well. The knee was stable throughout range of motion. The patella was resurfaced with the knee in extension to a size 29. The tibia rotation was then marked and the tibia stamped at the proper rotation at a size 3. The bone was prepared for cementing and all components cemented into place and allowed to cure in extension. Betadine solution was used for 3 minutes during the curing period and then fully irrigated out with 1 L of normal saline. The patella did not get a good attachment. I removed patella and took another half millimeter off of the patellar cut. Cement had adhered well to the bone but not implant itself. I then redrilled holes for the patella and we cemented the patella with no cemented. Again with at this curing this time it had a good ludwig. After the cement had cured the knee was taken through range of motion check for balance and stability which were good. Vancomycin powder was placed into the wound. The arthrotomy was closed with #1 Vicryl. The remainder of the wound was then closed by my pharmacy sales assistant utilizing 2-0 vycral in the subcutaneous tissue. 4-0 monocryl was used in the subcuticular layer followed by dermabond and a sterile dressing. After closure the patient will be transferred to the recovery room under the care of anesthesia. ANDREE LI MD Nov 06, 2016 10:42
[2016-11-06] MEDS ORDERED: METOCLOPRAMIDE 10mg/2ml INJECTION IV PRN (11:00)
[2016-11-06] MEDS ORDERED: PRN ORDERS MC (11:00)
[2016-11-06] MEDS ORDERED: DiphenhydrAMINE 25 MG CAPSULE PO PRN (11:00)
[2016-11-06] MEDS ORDERED: GABAPENTIN 300 MG CAPSULE PO PRN (11:00)
[2016-11-06] MEDS ORDERED: DiphenhydrAMINE 50 MG/ML INJECTION IV PRN (11:00)
[2016-11-06] MEDS ORDERED: SENNOSIDES 8.6 MG TABLET PO PRN (11:00)
[2016-11-06] MEDS ORDERED: ONDANSETRON 4mg/2ml INJECTION IV PRN (11:00)
[2016-11-06] MEDS ORDERED: LORAZEPAM 1 MG TABLET PO PRN (11:00)
--- NOTE | 2016-11-06 11:52 | NUR ---
ADMIT PATIENT ADMITTED TO ROOM 107 A THIS TIME. PATIENT IS ALERT AND ORIENTED X3. PATIENT WAS ABLE TO MOVE SELF FROM OR CART TO BED. PATIENT DENIES CP, NAUSEA, AND SOA. FAMILY AT BEDSIDE. WILL CONTINUE TO MONITOR.
--- NOTE | 2016-11-06 11:53 | DI ---
Indication: ITS.REASON: POSTOP left knee replacement PROCEDURE: KNEE LEFT 2 VIEW: Encounter: Initial Comparison: None Findings: Postoperative changes of left total knee replacement are seen. There is expected postoperative subcutaneous gas. No evidence of hardware failure or acute fracture. No retained radiopaque surgical instruments or sponges. Overlying material causing artifact. Impression: New left total knee prosthesis without evidence of immediate complication. .
[2016-11-06] MEDS: ACETAMINOPHEN 325 MG TABLET PO SCH ×3 (12:37→21:49)
[2016-11-06] MEDS: NORMAL SALINE 1,000 ML IV SCH (12:37)
--- NOTE | 2016-11-06 13:12 | ANESPO ---
Post-Op Note Date 11/06/16 Time: 13:11 Status Pt Participated in Evaluation: Pt participated in person Vital Signs Date Time Temp Pulse Resp B/P Pulse Ox O2 Delivery O2 Flow Rate FiO2 11/06/16 12:35 69 14 128/67 98 Nasal Cannula 2.00 11/06/16 12:05 96.8 Respiratory Function: Airway patent Cardiovascular Function: Regular pulse Telemetry Pattern: SR Mental Status: Alert/oriented Pain Level Intensity: 0 Unable to Assess Pain Due To: Pt Sleeping Hydration: IV infusing Complications during Recovery None apparent Follow-Up Instructions Instructions Per Surgeon MARINE VITALE CRNA Nov 06, 2016 13:11
--- NOTE | 2016-11-06 13:13 | ANESPD ---
Peripheral Nerve Blockade Physician: Angelo Li MD Date: 11/06/16 Surgical Procedure: Left Total knee Discussion Discussed risks/options/alternatives of anesthesia and questions answered. Patient consents. Nursing pain assessment noted. Block Start: 11:58 Block Stop: 12:04 Block Employed: Adductor Canal, Single Injection Indication: post-operative pain Approach: left side confirmed Position: supine Patient: Consent, risks/benefits discussed, Informed, post block act. discussed Monitors: EKG, SpO2, NIBP IV Sedation: No Sedation: Awake Initial Vital Signs First Documented Vital Signs Date Time Temp Pulse Resp B/P Pulse Ox O2 Delivery O2 Flow Rate FiO2 11/06/16 06:59 97.8 88 16 160/73 95 Room Air 11/06/16 11:05 6.00 Post Vital Signs Vital Signs Date Time Temp Pulse Resp B/P Pulse Ox O2 Delivery O2 Flow Rate FiO2 11/06/16 12:35 69 14 128/67 98 Nasal Cannula 2.00 11/06/16 12:05 96.8 Initial Pain Score: 0 Post Block Score: 0 Prep: chlorhexadine/ETOH Ultrasound Used?: Yes (see ultrasound image in EMR) Injectate Ropivacaine (%): 0.5 Ropivacaine (mL): 30 Was Epi 1:200,000 Used?: No Injection Injection made incrementally with constant monitoring and aspiration every 5ml. MARINE VITALE ASSOCIATE PROFESSOR OF MEDICINE Nov 06, 2016 13:13
[2016-11-06] MEDS: INSULIN LISPRO 100 UNIT/ML SQ PRN ×2 (14:46→21:54)
[2016-11-06] MEDS: NOZIN NASAL SWAB NS SCH ×2 (14:46→21:51)
[2016-11-06] MEDS: CLINDAMYCIN 900mg IVPB 50 ML IV SCH ×2 (14:46→21:48)
--- NOTE | 2016-11-06 15:33 | NUR ---
DM screen Diet Order: 1800 calorie consistent carb diet Nursing notes current Hgb A1c 7.6 SS Humalog ordered Based on Herve Solomon with 1.3 activity factor and 1.1 injury factor caloric needs ~1853 to maintain current body weight. Pt states she does not take any DM meds and never has. Pt states her last Hgb A1C was 7.2. Pt states she drinks a regular soda ~1 x/month. Pt states she drinks 8 oz of juice with every dinner. RD reviewed and provided handout on "Healthy Eating 1 2 3" with emphasis on avoiding regular soda and juice. Pt states she often swims 2x/week. Pt plans to continue that. Pt encouraged to follow up with her PCP regarding her Hgb A1C post hospitalization. RD provided contact information for questions.
[2016-11-06] MEDS: NAPROXEN 220 MG TABLET PO PRN (15:34)
[2016-11-06] MEDS: TRAMADOL 50 MG TABLET PO PRN (16:02)
[2016-11-06] MEDS ORDERED: GABAPENTIN 300 MG CAPSULE PO SCH ×2 (17:30→22:00)
--- NOTE | 2016-11-06 18:43 | NUR ---
SHIFT SUMMARY PATIENT IS ALERT AND ORIENTED X3. PATIENT VITALS ARE STABLE AND PATIENT IS ON 1L VIA NC. PATIENT AMBULATED WITH PT 1X. PATIENT HAS REQUIRED 2X PRN PO PAIN MEDICATION. PATIENT IS UP WITH 1X ASSIST, GB AND FWW. PATIENT DRESSING IS CLEAN DRY AND INTACT. FAMILY AT BEDSIDE WILL CONTINUE TO MONITOR.
[2016-11-06] MEDS: MESALAMINE 800 MG TABLET PO SCH (21:48)
[2016-11-06] MEDS: LISINOPRIL 20 MG TABLET PO SCH (21:50)
[2016-11-06] MEDS: ASPIRIN *EC* 325mg TABLET PO SCH (21:50)
[2016-11-06] MEDS ORDERED: LOVASTATIN 20 MG TABLET PO SCH (22:00)
[2016-11-06] MEDS ORDERED: SENNOSIDES 8.6 MG TABLET PO SCH (22:00)
[2016-11-07 01:00] VITALS: O2SAT 93
--- NOTE | 2016-11-07 01:35 | NUR ---
Chart Check 24 hour chart check completed
[2016-11-07] MEDS: TRAMADOL 50 MG TABLET PO PRN ×2 (02:48→11:39)
[2016-11-07] MEDS: NORMAL SALINE 1,000 ML IV SCH (02:52)
[2016-11-07] MEDS: CLINDAMYCIN 900mg IVPB 50 ML IV SCH (02:53)
[2016-11-07 03:00] VITALS: O2SAT 93
[2016-11-07 03:05] VITALS: BP 136/67; PULSE 74; RESP 14; TEMP 97.5; O2SAT 94
--- NOTE | 2016-11-07 04:59 | NUR ---
STATUS PATIENT ALTER AND ORIENTED X3. PATIENT REQUESTED TRAMADOL AND NEURONTIN X1 FOR PAIN DURING NIGHT. PATIENT IS UP X1 ASSIST,GB AND FWW. ON 2L O2 VIA NC. DENIES CHEST PAIN,SOA,OR N/V. DRESSING DRY ,INTACT AT LT KNEE .POLAR PAD USED. CALL LIGHT WITHIN REACH .CONTINUE TO MONITOR.
[2016-11-07 05:21] LABS: HCT - HEMATOCRIT 34.3 % (36-46); HGB - HEMOGLOBIN 11.4 GM/DL (12-16); MEAN CORPUSCULAR HGB 29.5 UUG (26-34); MEAN CORPUSCULAR HGB CONC(MCHC 33.2 GM/DL (31-37); MEAN CORPUSCULAR VOLUME 88.6 UM3 (80-100); MEAN PLATELET VOLUME 13.2 UM3 (9.4-12.4); RED BLOOD COUNT 3.87 M/MM3 (4.00-5.20); WBC - WHITE BLOOD COUNT 11.3 T/MM3 (4.5-11.0)
[2016-11-07 05:26] LABS: ANION GAP 10 MEQ/L (5-15); BUN/CREATININE RATIO 27 RATIO (6-26); CALCIUM 8.4 MG/DL (8.4-10.2); CHLORIDE 103 MEQ/L (98-107); CO2 - CARBON DIOXIDE 27 MEQ/L (22-30); CREATININE 0.7 MG/DL (0.7-1.2); GLOMERULAR FILTRATION RATE 81; GLUCOSE 138 MG/DL (65-110); POTASSIUM 4.1 MEQ/L (3.6-5); SODIUM 140 MEQ/L (134-144)
[2016-11-07] MEDS: NOZIN NASAL SWAB NS SCH ×2 (05:30→13:27)
[2016-11-07] MEDS: INSULIN LISPRO 100 UNIT/ML SQ PRN (05:45)
[2016-11-07] MEDS ORDERED: POTASSIUM CHLORIDE 10 MEQ TABLET PO SCH (08:00)
--- NOTE | 2016-11-07 08:22 | PDORTHOPN ---
Subjective Date DATE: 11/07/16 TIME: 08:17 Subjective Pts pain is well controlled at this time. She is a "diet controlled" diabetic with A1c > 7 Her blood sugars have been running 160-190 after surgery. She denies feeling SOA or having any CP. She was on some oxygen overnight. Her discharge plan is to go home. She has been up with good tolerance. Objective Vital Signs Vital signs Vital Signs 11/06/16 11/06/16 11/06/16 11/06/16 22:00 22:25 22:30 23:00 Pulse 69 70 70 69 Resp 18 18 18 18 Pulse Ox 93 87 91 95 O2 Delivery Room Air Nasal Cannula Nasal Cannula Nasal Cannula O2 Flow Rate 1.00 2.00 2.00 11/06/16 11/06/16 11/07/16 11/07/16 23:00 23:50 01:00 03:00 Temp 97.4 Pulse 71 69 71 Resp 14 18 18 B/P 120/67 Pulse Ox 93 93 93 O2 Delivery Nasal Cannula Nasal Cannula Nasal Cannula Nasal Cannula O2 Flow Rate 2.00 2.00 2.00 2.00 11/07/16 03:05 Temp 97.5 Pulse 74 Resp 14 B/P 136/67 Pulse Ox 94 O2 Delivery Nasal Cannula O2 Flow Rate 2.00 Height (Feet): 5 Height (Inches): 3.50 Weight (Kilograms): 88.000 General General Appearance: No Acute Distress Respiratory (Brief) Respiratory Brief: FOUND: non-labored Cardiovascular (Brief) Cardiac: FOUND: calf easily compressible, calf soft, nontender, pedal pulses intact Surgical Site Incision: FOUND: Mepilex dressing intact, no drainage Neurologic (Brief) Neurological Brief: FOUND: extremities w/o deficits, neuro intact Psychiatric (Brief) Psychiatric Brief: FOUND: alert, no acute distress Laboratory Laboratory Laboratory Tests 11/06/16 07:01 11/07/16 04:09 Laboratory Tests 11/06/16 07:01 11/07/16 04:09 Assessment & Plan Problems: (1) Degenerative arthritis of left knee Status: Chronic Qualifiers: Osteoarthritis type: primary Qualified Codes: M17.12 - Unilateral primary osteoarthritis, left knee Assessment & Plan: Aspirin protocol for VTE prophylaxis. SCD's and mobilization for added DVT protection. PT/OT services to improve independent function. Discharge Planning per Case Management. Wean from O2. Watch blood sugars and use SS insulin prn. Encourage her to f/u with PCP regarding diabetic monitoring. (2) DMII (diabetes mellitus, type 2) Status: Chronic Hospital Course Summary Disclaimer The visit summary below is not to be considered part of the above Progress Note. JUAN XAVIER Nov 07, 2016 08:21
[2016-11-07] MEDS: MESALAMINE 800 MG TABLET PO SCH (08:54)
[2016-11-07] MEDS: ASPIRIN *EC* 325mg TABLET PO SCH (08:55)
[2016-11-07] MEDS ORDERED: FUROSEMIDE 20 MG TABLET PO SCH (09:00)
[2016-11-07] MEDS ORDERED: ATENOLOL 25 MG TABLET PO SCH (09:00)
[2016-11-07] MEDS ORDERED: DOCUSATE SODIUM 100 MG CAPSULE PO SCH (09:00)
[2016-11-07] MEDS ORDERED: AMLODIPINE 5 MG TABLET PO SCH (09:00)
[2016-11-07] MEDS ORDERED: PYRIDOXINE 100 MG TABLET PO SCH (09:00)
--- NOTE | 2016-11-07 09:02 | NUR ---
CM CM IN TO VISIT WITH PT. SHE IS ALERT AND ORIENTED. SHE PLANS TO RETURN HOME AND DO OUTPT PT AT [facility]. SHE HAS FWW. SHE IS GIVEN CM CONTACT INFORMATION. LUKASZ SCORE IS 8. Addendum: 11/07/16 at 0904 by FARHEEN MONTEIRO RN Amended: Links added.
[2016-11-07] MEDS: NAPROXEN 220 MG TABLET PO PRN (09:04)
[2016-11-07] MEDS: POLYETHYL.GLYCOL 3350 PACKET 17gm PO SCH ×2 (09:05→09:09)
[2016-11-07] MEDS: ACETAMINOPHEN 325 MG TABLET PO SCH ×2 (09:05→13:28)
[2016-11-07] MEDS: LISINOPRIL 20 MG TABLET PO SCH (09:07)
[2016-11-07] MEDS ORDERED: INSULIN ASPART 100 UNIT/ML SQ PRN (10:15)
[2016-11-07 11:29] VITALS: BP 133/83; PULSE 69; RESP 16; TEMP 97.3; O2SAT 94
[2016-11-07 11:44] VITALS: BP 146/67; PULSE 73; RESP 16; TEMP 95.6; O2SAT 92
[2016-11-07] MEDS ORDERED: ASPI-917 PO (13:02)
[2016-11-07] MEDS ORDERED: TRAM50TA53 PO (13:02)
[2016-11-07] MEDS ORDERED: POLY17PO18 PO (13:02)
[2016-11-07] MEDS ORDERED: ACET-2321 PO (13:02)
[2016-11-07] MEDS ORDERED: OXYC-544 PO (13:18)
--- NOTE | 2016-11-07 13:22 | DSPDOC ---
General Date Date DATE: 11/07/16 TIME: 13:20 Attending Physician Angelo Li MD Admitting Physician Angelo Li MD Consulting Physician Admitting Diagnosis primary degenerative joint disease left knee Discharge Diagnosis primary DJD left knee Procedures Left total knee arthroplasty Diagnosis Left knee primary DJD History of Present Illness HPI Elements This patient was admitted for elective surgical tx of end stage degenerative joint disease that failed to respond to conservative treatment. Further details of this is found in the admission H&P. Hospital Course After appropriate preoperative clearance and signing of operative consent, the patient was given IV antibiotics, according to orthopedic protocol. The patient was taken to the operating room and underwent elective joint arthroplasty. Following surgery, antibiotics were discontinued less than 24 hours according to joint protocol. Appropriate anticoagulants were initiated and SCDs added for DVT prevention. The dressing was clean, dry, and intact. Pain control was obtained via multimodal approach. Bowel motivation addressed with scheduled and PRN medications. Early mobilization was initiated through PT services. Discharge arrangements made by a collaborative effort between the patient and Case Management. Follow-up is scheduled in 2-3 weeks. Discharge instructions given by orthopedic providers and nursing staff at discharge. Discharge condition was good. Problems: (1) Degenerative arthritis of left knee Status: Chronic Assessment & Plan: Aspirin protocol for VTE prophylaxis. SCD's and mobilization for added DVT protection. PT/OT services to improve independent function. Discharge Planning per Case Management. Wean from O2. Watch blood sugars and use SS insulin prn. Encourage her to f/u with PCP regarding diabetic monitoring. (2) DMII (diabetes mellitus, type 2) Status: Chronic Associated Postoperative Event: Acute P.O. Anemia Ongoing Care Required?: No Acute P.O. Anemia: Patient received IVF, Labs monitored daily, No intervention required, HGB drop-acceptable range Laboratory Laboratory Tests Test 11/06/16 13:54 11/06/16 20:43 11/07/16 04:09 11/07/16 05:40 Glucometer 192mg/dL 163mg/dL 181mg/dL White Blood Count 11.3T/MM3 Red Blood Count 3.87M/MM3 Hemoglobin 11.4GM/DL Hematocrit 34.3% Mean Corpuscular Volume 88.6UM3 Mean Corpuscular Hemoglobin 29.5UUG Mean Corpuscular Hemoglobin Concent 33.2GM/DL RDW Standard Deviation 42.2FL Platelet Count 124T/MM3 Mean Platelet Volume 13.2UM3 Turbidity < 20 Sodium Level 140MEQ/L Potassium Level 4.1MEQ/L Chloride Level 103MEQ/L Carbon Dioxide Level 27MEQ/L Anion Gap 10MEQ/L Blood Urea Nitrogen 19.0MG/DL Creatinine 0.7MG/DL Glomerular Filtration Rate Calc 81 BUN/Creatinine Ratio 27RATIO Glucose Level 138MG/DL Calculated Osmolality 273MOSM/KG Calcium Level 8.4MG/DL Icterus Index < 2 Chemistry Specimen Hemolysis 20 Test 11/07/16 10:06 Glucometer 285mg/dL Home Meds Active Scripts Oxycodone HCl (Roxicodone) 5 Mg Tablet, 5-10 MG PO Q3H, #30 TAB Take 1-2 (5 mg) tablets, by mouth, every 4 hours. Prov:ESTER JOHN 11/07/16 Polyethylene Glycol 3350 (Healthylax) 17 Gm Powd.pack, 17 G PO DAILY, #30 PACKET Prov:ESTER JOHN 11/07/16 Tramadol HCl (Ultram) 50 Mg Tablet, 50-100 MG PO Q4H Y for PAIN, #60 TAB Prov:ESTER JOHN 11/07/16 Aspirin *EC* (Aspirin EC) 325 Mg Tablet.dr, 325 MG PO BID, #84 TAB Prov:ESTER JOHN 11/07/16 Acetaminophen (Tylenol) 325 Mg Tablet, 650 MG PO QID, #100 TAB Prov:ESTER JOHN 11/07/16 Reported Medications Gabapentin (Gabapentin) 300 Mg Capsule, 1 CAP PO PRN, CAP 11/06/16 Cyanocobalamin (Vitamin B-12) (Vitamin B-12) 500 Mcg Tablet, 1 TAB PO DAILY, TAB 10/30/16 Pyridoxine HCl (Vitamin B-6) 100 Mg Tablet, 1 TAB PO DAILY 10/15/16 Furosemide (Furosemide) 20 Mg Tablet, 1 TAB PO DAILY, TAB 10/15/16 Gabapentin (Gabapentin) 300 Mg Capsule, 3 CAP PO HS, CAP 10/15/16 Gabapentin (Gabapentin) 300 Mg Capsule, 1 CAP PO WS, CAP MAY REPEAT X1 DURING THE NIGHT PRN 10/15/16 Amlodipine Besylate (Amlodipine Besylate) 5 Mg Tablet, 5 MG PO DAILY, TAB 3/13/17 Lovastatin (Lovastatin) 10 Mg Tablet, 1 TAB PO HS 10/15/16 Calcium Carbonate/Vitamin D3 (Calcium 600 + Vit D Tablet) 1 Each Tablet, 1 TAB PO BID 08/16/14 Mesalamine (Asacol Hd) 800 Mg Tablet, 800 MG PO BID 07/28/14 Atenolol (Atenolol) 25 Mg Tablet, 1 TAB PO DAILY, TAB 07/28/14 Gluc Ferreira/Chondro Ferreira A/Vit C/Mn (Glucosamine 1,500 Complex Cp) 1 Each Capsule, 1 CAP PO DAILY 07/28/14 Lisinopril (Lisinopril) 20 Mg Tablet, 1 TAB PO BID, TAB 07/28/14 Potassium Chloride (Potassium Chloride) 10 Meq Tablet.er, 10 MEQ PO DAILY, TAB 07/28/14 Discontinued Reported Medications Aspirin *EC* (Low Dose Aspirin EC) 81 Mg Tablet.dr, 1 TAB PO DAILY, TAB 10/15/16 Tramadol HCl (Tramadol HCl) 50 Mg Tablet, 50 MG PO Q4H Y for PAIN, TAB Take 1 tablet, by mouth, every 4 hours. 10/15/16 Acetaminophen (Tylenol Extra Strength) 500 Mg Tablet, 2 TAB PO BID for PAIN, TAB 08/16/14 Discharge Disposition Please refer to Case Management Notes for patient's disposition. Estimated Blood Loss 20.0 ESTER JOHN Nov 07, 2016 13:22
--- NOTE | 2016-11-07 14:07 | NUR ---
DISMISSAL PATIENT DISMISSED TO HOME FOR SELF-CARE TO THE MAIN [facility] ENTRANCE. PT AMBULATORY WITH WALKER. PATIENT'S WAS THE HORSE IDENTIFIER HOME. ROOM AIR AT TIME OF DISMISSAL. PERSONAL BELONGINGS RETURNED PRIOR TO D/C. IV CATHETER REMOVED BY [place] VAZQUEZ STUDENT WITH SUPERVISION FROM THIS RN. CATHETER TIP INTACT. D/C INSTRUCTIONS REVIEWED WITH PT AND . BOTH VERBALIZED UNDERSTANDING. TOPICS DISCUSSED INCLUDED: NEW MEDICATIONS, S/S TO REPORT, FOLLOW UP APPOINTMENTS, NEW MEDICATIONS, AND INCISION CARE.
[2016-11-08] MEDS ORDERED: MILK OF MAGNESIA 30 ML SUSP PO SCH (08:00)
--- NOTE | 2016-11-08 10:02 | NUR ---
CM CM CALLED PATIENT FOR POST HOSPITAL FOLLOW UP PHONE CALL, ALSO ASKING QUESTIONS FOR DR MENDES. PATIENT HAD A L TKA. 1. PAIN AT REST: 3 2. PAIN WITH ACTIVITY: 6-7 3. ANTICOAGULATION: ASA 325MG BID, DID NOT HAVE AT HOME. IS PICKING UP AND STRESSED IMPORTANCE OF STARTING THAT TODAY. 4. PAIN MEDICATION: ORDERED TYLENOL 650MG QID, SHE ONLY HAD ES TYLENOL SO PICKING THIS UP WELL. WILL START TODAY. DID JUST TAKE AN OXYCODONE. 5. BM: YES PATIENT HAS HAD SOME NAUSEA SINCE HOME AND EMESIS X2, TOLD HER THAT IF SHE CAN'T KEEP PILLS DOWN NEEDS TO CONTACT DR CONRAD OFFICE TODAY, SHE VERBALIZED UNDERSTANDING.
[2016-11-08] MEDS ORDERED: BISACODYL 10 MG SUPPOSITORY RECTALLY SCH (20:00)
== END 2016-11-07 14:07 | disposition home or self-care (01) | DRG 470 ==
LOC: SRG 06:42
PROVIDERS: ADMIT Orthopaedic Surgery; ATTEND Orthopaedic Surgery
PROC: 0SRD0J9 Replacement of Left Knee Joint with Synthetic Substitute, Cemented, Open Approach (ICD-10-PCS; principal; 2016-11-06 09:15)
DX: M17.12 Unilateral primary osteoarthritis, left knee (principal); G25.81 Restless legs syndrome; D64.9 Anemia, unspecified; E11.9 Type 2 diabetes mellitus without complications; I10 Essential (primary) hypertension; E78.00 Pure hypercholesterolemia, unspecified; I25.10 Atherosclerotic heart disease of native coronary artery without angina pectoris; M47.892 Other spondylosis, cervical region; Z95.0 Presence of cardiac pacemaker
CPT/HCPCS: 36415; 80048; 82948; 85025; 85027; 94762